=== PATIENT | male | born 1975 | race Caucasian/White ===

== ENCOUNTER 2017-07-23 09:58 | Emergency (ER) | payer OTHER ==
[~2017-07-23] VITALS: Ht 177.8 cm; Wt 90.7 kg
[~2017-07-23 09:58] MED LIST: ABILIFY; ARIP10 PO; BENZ.5; BENZ2 PO; COGENTIN; DIPH50 PO; DIVA250EC PO; DIVA500EC; HALDOL; HALO2 PO; HALO5; HALO5 PO; OMEP20ER PO; RISP1 PO; RISP2; RISP2 PO; RISP3; RISP4; TRAZ100; TRAZ50; [UNRECOGNIZED DRUG - OTHER]
[2017-07-23 10:29] LABS: Source, Urine Voided
[2017-07-23 10:41] LABS: Bilirubin, Urine Neg (Neg); Blood, Urine Neg (Neg); Glucose Qualitative, Urine Neg (Neg); Ketones, Urine Neg (Neg); Leukocyte Esterase, Urine Neg (Neg); Nitrite, Urine Neg (Neg); Protein, Urine Neg (Neg); Urobilinogen, Urine NORM (Normal)
[2017-07-23 10:55] LABS: BASOPHILS ABSOLUTE AUTO 0.04 K/mm3 (0.00-0.23); BASOPHILS PERCENT AUTO 0 % (0-2); EOSINOPHILS ABSOLUTE AUTO 0.11 K/mm3 (0.00-0.68); EOSINOPHILS PERCENT AUTO 1 % (0-6); Hematocrit 45.3 % (37.0-53.0); Hemoglobin 15.8 g/dL (13.5-17.5); IMMATURE GRAN ABSOLUTE AUTO 0.04 K/mm3 (0.00-0.10); IMMATURE GRAN PERCENT AUTO 0 % (0-1); LYMPHOCYTES ABSOLUTE AUTO 2.02 K/mm3 (0.84-5.20); LYMPHOCYTES PERCENT AUTO 20 % (21-46); MONOCYTES PERCENT AUTO 7 % (4-13); Mean Corpuscular HGB 30.6 pg (26.0-34.0); Mean Corpuscular HGB Conc 34.9 g/dL (31.5-36.5); Mean Corpuscular Volume 88 fL (80-100); Mean Platelet Volume 9.6 fL (9.1-12.4); NEUTROPHILS ABSOLUTE AUTO 7.07 K/mm3 (1.96-9.15); NEUTROPHILS PERCENT AUTO 71 % (41-73); Platelet Count 222 K/mm3 (150-400); RDW Coefficient Variation 12.2 % (11.7-14.2); RDW Standard Deviation 39.6 fL (35.1-46.3); Red Blood Cell Count 5.16 M/mm3 (4.30-5.90); White Blood Cell Count 9.98 K/mm3 (4.00-11.30)
[2017-07-23 10:59] LABS: Appearance, Urine Clear (Clear); Color, Urine Yellow (P-Yellow)
[2017-07-23 11:02] LABS: U Amphetamine Screen Not Detected; U Barbituate Screen Not Detected; U Benzodiazapine Screen Not Detected; U Buprenorphine Screen Not Detected; U Cannabinoids Screen DETECTED; U Cocaine Screen Not Detected; U Methadone Screen Not Detected; U Methamphetamine Screen Not Detected; U Opiates Screen Not Detected; U Oxycodone Screen Not Detected; U Phencyclidine Screen Not Detected; U Propoxyphene Screen Not Detected
[2017-07-23] MEDS ORDERED: HALO5 PO (11:06)
[2017-07-23 11:17] LABS: Alanine Aminotransfer (ALT/SGP 29 U/L (12-78); Albumin, Blood 3.5 g/dL (3.4-5.0); Alk Phos 105 U/L (50-136); Anion Gap 7 mmol/L (6-16); Aspartate Aminotrans (AST/SGOT 21 U/L (12-37); Bilirubin, Total 0.5 mg/dL (0.1-1.0); Blood Urea Nitrogen 8 mg/dL (8-24); Bun/Creatinine Ratio 10.1 (12.0-20.0); CO2, Blood 25 mmol/L (21-32); Calcium, Blood 8.7 mg/dL (8.5-10.1); Chloride, Blood 108 mmol/L (98-108); Creatinine, Blood 0.79 mg/dL (0.60-1.20); Ethanol (Alcohol), Blood, Med 12 mg/dL; Globulin, Blood 3.6 g/dL (2.2-4.0); Glomerular Filtration Rate >60 (60-); Glucose, Blood 129 mg/dL (70-99); Potassium, Blood 3.7 mmol/L (3.5-5.5); Salicylate 4.5 mg/dL (2.8-20.0); Sodium, Blood 140 mmol/L (136-145); Total Protein, Blood 7.1 g/dL (6.4-8.2)
[2017-07-23 11:21] LABS: Thyroid Stimulating Hormone 0.668 uIU/mL (0.360-4.800)
[2017-07-23 11:23] LABS: Acetaminophen, Random <2.0 ug/mL (10.0-30.0)
== END 2017-07-23 12:54 | disposition home or self-care (01) ==
LOC: ER 09:58
PROVIDERS: Emergency Medicine
DX: F20.9 Schizophrenia, unspecified (principal); Z88.8 Allergy status to other drugs, medicaments and biological substances
CPT/HCPCS: 36415; 80053; 81003; 84443; 85025; 99284; G0480; Q3014

== ENCOUNTER 2018-08-28 20:03 | Observation (INO) | payer OTHER ==
[~2018-08-28] VITALS: Ht 177.8 cm; Wt 94.8 kg
[~2018-08-28 20:03] MED LIST changes: +Benztropine Mesy1 MG PO; +CHOL10002 PO; +TEMA15 PO
[2018-08-28] MEDS ORDERED: OLAN20 MM (20:31)
[2018-08-28] MEDS ORDERED: IBUP600 PO (20:32)
[2018-08-28] MEDS ORDERED: Amaryl1 MG PO (20:32)
[2018-08-28 20:51] LABS: Source, Urine Voided
[2018-08-28 20:53] LABS: Bilirubin, Urine Neg (Neg); Blood, Urine Neg (Neg); Glucose Qualitative, Urine Neg (Neg); Ketones, Urine Neg (Neg); Leukocyte Esterase, Urine Neg (Neg); Nitrite, Urine Neg (Neg); Protein, Urine Neg (Neg); Urobilinogen, Urine NORM (Normal)
[2018-08-28 20:58] LABS: Appearance, Urine Clear (Clear); Color, Urine Yellow (P-Yellow)
[2018-08-28] MEDS ORDERED: OLAN5 PO (21:02)
[2018-08-28] MEDS ORDERED: METF500C PO (21:03)
[2018-08-28 21:04] LABS: U Amphetamine Screen Not Detected; U Barbituate Screen Not Detected; U Benzodiazapine Screen Not Detected; U Buprenorphine Screen Not Detected; U Cannabinoids Screen DETECTED; U Cocaine Screen Not Detected; U Methadone Screen Not Detected; U Methamphetamine Screen Not Detected; U Opiates Screen Not Detected; U Oxycodone Screen Not Detected; U Phencyclidine Screen Not Detected; U Propoxyphene Screen Not Detected
[2018-08-28 21:06] LABS: BASOPHILS ABSOLUTE AUTO 0.04 K/mm3 (0.00-0.23); BASOPHILS PERCENT AUTO 0 % (0-2); EOSINOPHILS ABSOLUTE AUTO 0.29 K/mm3 (0.00-0.68); EOSINOPHILS PERCENT AUTO 2 % (0-6); Hematocrit 47.2 % (37.0-53.0); Hemoglobin 16.1 g/dL (13.5-17.5); IMMATURE GRAN ABSOLUTE AUTO 0.05 K/mm3 (0.00-0.10); IMMATURE GRAN PERCENT AUTO 0 % (0-1); LYMPHOCYTES ABSOLUTE AUTO 3.29 K/mm3 (0.84-5.20); LYMPHOCYTES PERCENT AUTO 24 % (21-46); MONOCYTES ABSOLUTE AUTO 0.82 K/mm3 (0.16-1.47); MONOCYTES PERCENT AUTO 6 % (4-13); Mean Corpuscular HGB 31.1 pg (26.0-34.0); Mean Corpuscular HGB Conc 34.1 g/dL (31.5-36.5); Mean Corpuscular Volume 91 fL (80-100); Mean Platelet Volume 9.7 fL (9.1-12.4); NEUTROPHILS ABSOLUTE AUTO 9.22 K/mm3 (1.96-9.15); NEUTROPHILS PERCENT AUTO 67 % (41-73); Platelet Count 204 K/mm3 (150-400); RDW Coefficient Variation 12.8 % (11.7-14.2); RDW Standard Deviation 43.1 fL (35.1-46.3); Red Blood Cell Count 5.18 M/mm3 (4.30-5.90); White Blood Cell Count 13.71 K/mm3 (4.00-11.30)
[2018-08-28 21:29] LABS: Alanine Aminotransfer (ALT/SGP 21 U/L (12-78); Albumin, Blood 3.6 g/dL (3.4-5.0); Albumin/Globulin Ratio 1.1 (0.8-1.8); Alk Phos 69 U/L (50-136); Anion Gap 5 mmol/L (6-16); Aspartate Aminotrans (AST/SGOT 17 U/L (12-37); Bilirubin, Total 0.5 mg/dL (0.1-1.0); Blood Urea Nitrogen 9 mg/dL (8-24); Bun/Creatinine Ratio 11.4 (12.0-20.0); CO2, Blood 25 mmol/L (21-32); Calcium, Blood 8.7 mg/dL (8.5-10.1); Chloride, Blood 109 mmol/L (98-108); Creatinine, Blood 0.79 mg/dL (0.60-1.20); Ethanol (Alcohol), Blood, Med <3 mg/dL; Globulin, Blood 3.4 g/dL (2.2-4.0); Glomerular Filtration Rate >60 (60-); Glucose, Blood 79 mg/dL (70-99); Potassium, Blood 3.8 mmol/L (3.5-5.5); Salicylate 5.2 mg/dL (2.8-20.0); Sodium, Blood 139 mmol/L (136-145)
[2018-08-28 21:37] LABS: Acetaminophen, Random <2.0 ug/mL (10.0-30.0)
== END 2018-08-28 23:35 | disposition home or self-care (01) ==
LOC: ER 20:03 → EOR 20:04
PROVIDERS: ADMIT Emergency Medicine
DX: F20.0 Paranoid schizophrenia (principal); F12.929 Cannabis use, unspecified with intoxication, unspecified; Z91.018 Allergy to other foods; Z88.8 Allergy status to other drugs, medicaments and biological substances; Z79.899 Other long term (current) drug therapy
CPT/HCPCS: 36415; 80053; 81003; 84443; 85025; 99285; G0378; G0480; Q3014

== ENCOUNTER 2018-09-05 19:09 | Emergency (ER) | payer OTHER ==
[~2018-09-05] VITALS: Ht 177.8 cm; Wt 94.8 kg
[~2018-09-05 19:09] MED LIST changes: +METF500C PO; +OLAN20 PO; +OLAN5 PO
[2018-09-05 19:39] LABS: Source, Urine Clean Catch
[2018-09-05 19:43] LABS: BASOPHILS ABSOLUTE AUTO 0.03 K/mm3 (0.00-0.23); BASOPHILS PERCENT AUTO 0 % (0-2); EOSINOPHILS ABSOLUTE AUTO 0.13 K/mm3 (0.00-0.68); EOSINOPHILS PERCENT AUTO 1 % (0-6); Hemoglobin 17.6 g/dL (13.5-17.5); IMMATURE GRAN ABSOLUTE AUTO 0.04 K/mm3 (0.00-0.10); IMMATURE GRAN PERCENT AUTO 0 % (0-1); LYMPHOCYTES ABSOLUTE AUTO 2.91 K/mm3 (0.84-5.20); LYMPHOCYTES PERCENT AUTO 24 % (21-46); MONOCYTES ABSOLUTE AUTO 0.77 K/mm3 (0.16-1.47); MONOCYTES PERCENT AUTO 6 % (4-13); Mean Corpuscular HGB Conc 34.5 g/dL (31.5-36.5); Mean Corpuscular Volume 90 fL (80-100); Mean Platelet Volume 9.6 fL (9.1-12.4); NEUTROPHILS ABSOLUTE AUTO 8.14 K/mm3 (1.96-9.15); NEUTROPHILS PERCENT AUTO 68 % (41-73); Platelet Count 229 K/mm3 (150-400); RDW Coefficient Variation 12.6 % (11.7-14.2); RDW Standard Deviation 41.3 fL (35.1-46.3); Red Blood Cell Count 5.68 M/mm3 (4.30-5.90); White Blood Cell Count 12.02 K/mm3 (4.00-11.30)
[2018-09-05 19:43] LABS: Bilirubin, Urine Neg (Neg); Blood, Urine Neg (Neg); Glucose Qualitative, Urine Neg (Neg); Ketones, Urine Neg (Neg); Leukocyte Esterase, Urine Neg (Neg); Nitrite, Urine Neg (Neg); Protein, Urine Neg (Neg); Specific Gravity, Urine 1.015 (1.003-1.022); Urobilinogen, Urine NORM (Normal)
[2018-09-05 19:48] LABS: Appearance, Urine Clear (Clear); Color, Urine Yellow (P-Yellow)
[2018-09-05 19:59] LABS: U Amphetamine Screen Not Detected; U Barbituate Screen Not Detected; U Benzodiazapine Screen Not Detected; U Buprenorphine Screen Not Detected; U Cannabinoids Screen DETECTED; U Cocaine Screen Not Detected; U Methadone Screen Not Detected; U Methamphetamine Screen Not Detected; U Opiates Screen Not Detected; U Oxycodone Screen Not Detected; U Phencyclidine Screen Not Detected; U Propoxyphene Screen Not Detected
[2018-09-05 20:14] LABS: Ethanol (Alcohol), Blood, Med <3 mg/dL; Salicylate 7.2 mg/dL (2.8-20.0); Thyroxine (T4) 9.6 ug/dL (4.5-12.1)
[2018-09-05 20:23] LABS: Alanine Aminotransfer (ALT/SGP 27 U/L (12-78); Albumin/Globulin Ratio 1.1 (0.8-1.8); Alk Phos 99 U/L (50-136); Anion Gap 8 mmol/L (6-16); Aspartate Aminotrans (AST/SGOT 13 U/L (12-37); Bilirubin, Total 0.7 mg/dL (0.1-1.0); Blood Urea Nitrogen 10 mg/dL (8-24); Bun/Creatinine Ratio 12.2 (12.0-20.0); CO2, Blood 24 mmol/L (21-32); Calcium, Blood 9.1 mg/dL (8.5-10.1); Chloride, Blood 103 mmol/L (98-108); Creatinine, Blood 0.82 mg/dL (0.60-1.20); Globulin, Blood 3.8 g/dL (2.2-4.0); Glomerular Filtration Rate >60 (60-); Glucose, Blood 186 mg/dL (70-99); Potassium, Blood 3.4 mmol/L (3.5-5.5); Sodium, Blood 135 mmol/L (136-145); Total Protein, Blood 7.8 g/dL (6.4-8.2)
== END 2018-09-05 23:52 | disposition home or self-care (01) ==
LOC: ER 19:09
PROVIDERS: Emergency Medicine
DX: F20.9 Schizophrenia, unspecified (principal); R45.1 Restlessness and agitation; F41.9 Anxiety disorder, unspecified; Z88.8 Allergy status to other drugs, medicaments and biological substances; Z79.899 Other long term (current) drug therapy; Z79.84 Long term (current) use of oral hypoglycemic drugs; F17.210 Nicotine dependence, cigarettes, uncomplicated
CPT/HCPCS: 36415; 80053; 81003; 84436; 84443; 85025; 99283; G0480

== ENCOUNTER 2018-10-07 17:10 | Emergency (ER) | payer OTHER ==
[~2018-10-07] VITALS: Ht 177.8 cm; Wt 86.2 kg
[2018-10-07] MEDS ORDERED: OLAN5 PO (17:56)
[2018-10-07] MEDS ORDERED: IBUP600 PO (18:14)
[2018-10-07] MEDS ORDERED: Amaryl1 MG PO (18:15)
[2018-10-07] MEDS ORDERED: ALBU90OI61 INH (18:19)
== END 2018-10-07 21:05 | disposition home or self-care (01) ==
LOC: ER 17:10
DX: F32.9 Major depressive disorder, single episode, unspecified (principal); Z88.8 Allergy status to other drugs, medicaments and biological substances; Z79.84 Long term (current) use of oral hypoglycemic drugs; Z79.899 Other long term (current) drug therapy; F20.9 Schizophrenia, unspecified; F17.210 Nicotine dependence, cigarettes, uncomplicated
CPT/HCPCS: 99284; Q3014

== ENCOUNTER 2018-12-18 09:46 | Emergency (ER) | payer OTHER ==
[~2018-12-18] VITALS: Ht 177.8 cm; Wt 86.2 kg
[~2018-12-18 09:46] MED LIST changes: +ALBU90OI61 INH; +Amaryl1 MG PO; +IBUP600 PO
[2018-12-18] MEDS ORDERED: Bupropion HCl150 M2 PO (10:05)
[2018-12-18] MEDS ORDERED: OLANZAPINE5 MG PO (10:05)
[2018-12-18] MEDS ORDERED: METFORMIN HCL500 MG PO (10:05)
== END 2018-12-18 11:45 | disposition home or self-care (01) ==
LOC: ER 09:46
DX: F20.0 Paranoid schizophrenia (principal); F17.210 Nicotine dependence, cigarettes, uncomplicated; Z88.8 Allergy status to other drugs, medicaments and biological substances; Z79.899 Other long term (current) drug therapy; Z79.84 Long term (current) use of oral hypoglycemic drugs
CPT/HCPCS: 99283

== ENCOUNTER 2019-01-12 11:54 | Emergency (ER) | payer OTHER ==
[~2019-01-12] VITALS: Ht 177.8 cm; Wt 90.7 kg
[~2019-01-12 11:54] MED LIST changes: +Bupropion HCl150 M2 PO; +METFORMIN HCL500 MG PO; +OLANZAPINE5 MG PO
[2019-01-12 12:30] LABS: BASOPHILS ABSOLUTE AUTO 0.04 K/mm3 (0.00-0.23); BASOPHILS PERCENT AUTO 0 % (0-2); EOSINOPHILS ABSOLUTE AUTO 0.08 K/mm3 (0.00-0.68); EOSINOPHILS PERCENT AUTO 1 % (0-6); Hematocrit 47.1 % (37.0-53.0); Hemoglobin 16.1 g/dL (13.5-17.5); IMMATURE GRAN ABSOLUTE AUTO 0.06 K/mm3 (0.00-0.10); IMMATURE GRAN PERCENT AUTO 0 % (0-1); LYMPHOCYTES ABSOLUTE AUTO 2.56 K/mm3 (0.84-5.20); LYMPHOCYTES PERCENT AUTO 18 % (21-46); MONOCYTES ABSOLUTE AUTO 0.79 K/mm3 (0.16-1.47); MONOCYTES PERCENT AUTO 6 % (4-13); Mean Corpuscular HGB 31.3 pg (26.0-34.0); Mean Corpuscular HGB Conc 34.2 g/dL (31.5-36.5); Mean Corpuscular Volume 92 fL (80-100); Mean Platelet Volume 9.4 fL (9.1-12.4); NEUTROPHILS ABSOLUTE AUTO 10.44 K/mm3 (1.96-9.15); NEUTROPHILS PERCENT AUTO 75 % (41-73); Platelet Count 211 K/mm3 (150-400); RDW Coefficient Variation 12.3 % (11.7-14.2); RDW Standard Deviation 42.1 fL (35.1-46.3); Red Blood Cell Count 5.14 M/mm3 (4.30-5.90); White Blood Cell Count 13.97 K/mm3 (4.00-11.30)
[2019-01-12 12:34] LABS: Source, Urine Clean Catch
[2019-01-12 12:39] LABS: Bilirubin, Urine Neg (Neg); Blood, Urine Neg (Neg); Glucose Qualitative, Urine Neg (Neg); Ketones, Urine Neg (Neg); Leukocyte Esterase, Urine Neg (Neg); Nitrite, Urine Neg (Neg); Protein, Urine Neg (Neg); Urobilinogen, Urine NORM (Normal)
[2019-01-12 12:40] LABS: Appearance, Urine Clear (Clear); Color, Urine Yellow (P-Yellow)
[2019-01-12 12:50] LABS: U Amphetamine Screen Not Detected; U Barbituate Screen Not Detected; U Benzodiazapine Screen Not Detected; U Buprenorphine Screen Not Detected; U Cannabinoids Screen DETECTED; U Cocaine Screen Not Detected; U Methadone Screen Not Detected; U Methamphetamine Screen Not Detected; U Opiates Screen Not Detected; U Oxycodone Screen Not Detected; U Phencyclidine Screen Not Detected; U Propoxyphene Screen Not Detected
[2019-01-12 12:55] LABS: Alanine Aminotransfer (ALT/SGP 28 U/L (12-78); Albumin, Blood 3.8 g/dL (3.4-5.0); Albumin/Globulin Ratio 1.1 (0.8-1.8); Alk Phos 82 U/L (50-136); Anion Gap 10 mmol/L (6-16); Aspartate Aminotrans (AST/SGOT 29 U/L (12-37); Bilirubin, Total 0.4 mg/dL (0.1-1.0); Blood Urea Nitrogen 9 mg/dL (8-24); Bun/Creatinine Ratio 10.2 (12.0-20.0); CO2, Blood 22 mmol/L (21-32); Calcium, Blood 9.1 mg/dL (8.5-10.1); Chloride, Blood 108 mmol/L (98-108); Creatinine, Blood 0.88 mg/dL (0.60-1.20); Ethanol (Alcohol), Blood, Med 48 mg/dL; Globulin, Blood 3.6 g/dL (2.2-4.0); Glomerular Filtration Rate >60 (60-); Glucose, Blood 161 mg/dL (70-99); Potassium, Blood 3.7 mmol/L (3.5-5.5); Salicylate 4.7 mg/dL (2.8-20.0); Sodium, Blood 140 mmol/L (136-145); Thyroxine (T4) 8.5 ug/dL (4.5-12.1); Total Protein, Blood 7.4 g/dL (6.4-8.2)
[2019-01-12 12:59] LABS: Thyroid Stimulating Hormone 0.841 uIU/mL (0.360-4.800)
[2019-01-12 13:01] LABS: Acetaminophen, Random <2.0 ug/mL (10.0-30.0)
[2019-01-12] MEDS ORDERED: D3-20002000 UNIT PO (13:34)
[2019-01-12] MEDS ORDERED: Vistaril25 MG PO (13:35)
== END 2019-01-12 15:35 | disposition home or self-care (01) ==
LOC: ER 11:54
PROVIDERS: Emergency Medicine
DX: F41.9 Anxiety disorder, unspecified (principal); F20.9 Schizophrenia, unspecified; E11.9 Type 2 diabetes mellitus without complications; Z88.8 Allergy status to other drugs, medicaments and biological substances; Z79.899 Other long term (current) drug therapy; Z79.84 Long term (current) use of oral hypoglycemic drugs
CPT/HCPCS: 36415; 80053; 81003; 84436; 84443; 85025; 99283; G0480

== ENCOUNTER → 2019-02-05 | Outpatient (CLI) | payer OTHER ==
[~2019-02-05] MED LIST changes: +CEPH500 PO; +D3-20002000 UNIT PO; +Ventolin/Prove6.7 GM INH; +Vistaril25 MG PO
[2019-02-05 17:31] LABS: U Amphetamine Screen Not Detected; U Barbituate Screen Not Detected; U Benzodiazapine Screen Not Detected; U Buprenorphine Screen Not Detected; U Cannabinoids Screen DETECTED; U Cocaine Screen Not Detected; U Methadone Screen Not Detected; U Methamphetamine Screen Not Detected; U Opiates Screen Not Detected; U Phencyclidine Screen Not Detected
[2019-02-05 17:32] LABS: U Oxycodone Screen Not Detected; U Propoxyphene Screen Not Detected
== END | disposition home or self-care (01) ==
LOC: LAB 08:20 → LAB SHORT 08:20
PROVIDERS: Registered Nurse Psychiatric/Mental Health
DX: Z51.81 Encounter for therapeutic drug level monitoring (principal); Z79.899 Other long term (current) drug therapy

== ENCOUNTER 2019-02-11 10:20 | Emergency (ER) | payer OTHER ==
[~2019-02-11] VITALS: Ht 177.8 cm; Wt 86.2 kg
[2019-02-11] MEDS ORDERED: Clonazepam0.5 MG PO (13:23)
== END 2019-02-11 13:25 | disposition home or self-care (01) ==
LOC: ER 10:20
DX: F20.9 Schizophrenia, unspecified (principal); F41.9 Anxiety disorder, unspecified; E11.9 Type 2 diabetes mellitus without complications; F17.210 Nicotine dependence, cigarettes, uncomplicated; Z91.018 Allergy to other foods; Z88.8 Allergy status to other drugs, medicaments and biological substances; Z79.899 Other long term (current) drug therapy; Z79.84 Long term (current) use of oral hypoglycemic drugs
CPT/HCPCS: 99283

== ENCOUNTER → 2019-03-07 | Outpatient (CLI) | payer OTHER ==
[~2019-03-07] MED LIST changes: +Clonazepam0.5 MG PO
== END ==
LOC: LAB 10:32 → LAB SHORT 10:32
DX: E11.9 Type 2 diabetes mellitus without complications (principal)
CPT/HCPCS: 82043

== ENCOUNTER 2019-03-31 07:04 | Emergency (ER) | payer OTHER ==
[~2019-03-31] VITALS: Ht 177.8 cm; Wt 99.8 kg
== END 2019-03-31 08:23 | disposition home or self-care (01) ==
LOC: ER 07:04
DX: F20.0 Paranoid schizophrenia (principal); E11.9 Type 2 diabetes mellitus without complications; F17.210 Nicotine dependence, cigarettes, uncomplicated; Z88.8 Allergy status to other drugs, medicaments and biological substances
CPT/HCPCS: 99283

== ENCOUNTER → 2019-04-25 | Outpatient (CLI) | payer OTHER ==
[2019-04-25 15:15] LABS: Campylobacter Sp Not Detected (NOT DETECT); Plesiomonas Shigelloides Not Detected (NOT DETECT); Salmonella Sp Not Detected (NOT DETECT)
[2019-04-25 15:16] LABS: Adenovirus F 40/41 Not Detected (NOT DETECT); Astrovirus Not Detected (NOT DETECT); Cryptosporidium Not Detected (NOT DETECT); Cyclospora Cayetanensis Not Detected (NOT DETECT); E. Coli O157 Not Detected (NOT DETECT); Entamoeba Histolytica Not Detected (NOT DETECT); Enteroaggregative E. coli-EAEC Not Detected (NOT DETECT); Enteropathogenic E. coli-EPEC Not Detected (NOT DETECT); Enterotoxigenic E. coli-ETEC Not Detected (NOT DETECT); Giardia Lamblia Not Detected (NOT DETECT); Norovirus GI/GII Not Detected (NOT DETECT); Rotavirus A Not Detected (NOT DETECT); Sapovirus Not Detected (NOT DETECT); Shiga Toxin-prod E. coli-STEC Not Detected (NOT DETECT); Shigella/Enteroin E. coli-EIEC Not Detected (NOT DETECT); Vibrio Cholerae Not Detected (NOT DETECT); Vibrio Sp Not Detected (NOT DETECT); Yersinia Enterocolitica Not Detected (NOT DETECT)
== END | disposition home or self-care (01) ==
LOC: LAB SHORT 09:26 → LAB 09:26
PROVIDERS: Nurse Practitioner Family
DX: R10.30 Lower abdominal pain, unspecified (principal); R19.7 Diarrhea, unspecified
CPT/HCPCS: 0097U

== ENCOUNTER → 2019-05-07 | Outpatient (CLI) | payer OTHER ==
[2019-05-07 18:57] LABS: U Amphetamine Screen Not Detected; U Barbituate Screen Not Detected; U Benzodiazapine Screen Not Detected; U Buprenorphine Screen Not Detected; U Cannabinoids Screen DETECTED; U Cocaine Screen Not Detected; U Methadone Screen Not Detected; U Methamphetamine Screen Not Detected; U Opiates Screen Not Detected; U Oxycodone Screen Not Detected; U Propoxyphene Screen Not Detected
== END | disposition home or self-care (01) ==
LOC: LAB SHORT 17:18 → LAB 17:18
PROVIDERS: Registered Nurse Psychiatric/Mental Health
DX: Z51.81 Encounter for therapeutic drug level monitoring (principal); Z79.899 Other long term (current) drug therapy

== ENCOUNTER 2019-06-24 12:45 | Emergency (ER) | payer OTHER ==
[~2019-06-24] VITALS: Ht 175.3 cm; Wt 104.3 kg
== END 2019-06-24 13:26 | disposition home or self-care (01) ==
LOC: ER 12:45
DX: F41.9 Anxiety disorder, unspecified (principal); F20.9 Schizophrenia, unspecified; E11.9 Type 2 diabetes mellitus without complications; F17.210 Nicotine dependence, cigarettes, uncomplicated; Z91.048 Other nonmedicinal substance allergy status; Z79.899 Other long term (current) drug therapy; Z79.84 Long term (current) use of oral hypoglycemic drugs
CPT/HCPCS: 99283

== ENCOUNTER 2019-06-28 14:35 | Emergency (ER) | payer OTHER ==
[~2019-06-28] VITALS: Ht 177.8 cm; Wt 103.9 kg
== END 2019-06-28 16:11 | disposition home or self-care (01) ==
LOC: ER 14:35
DX: F41.9 Anxiety disorder, unspecified (principal); F20.9 Schizophrenia, unspecified; F17.210 Nicotine dependence, cigarettes, uncomplicated; Z91.018 Allergy to other foods; Z79.899 Other long term (current) drug therapy; Z79.84 Long term (current) use of oral hypoglycemic drugs
CPT/HCPCS: 99283

== ENCOUNTER 2019-08-23 14:31 | Emergency (ER) | payer OTHER ==
[~2019-08-23] VITALS: Ht 177.8 cm; Wt 99.8 kg
== END 2019-08-23 16:20 | disposition home or self-care (01) ==
LOC: ER 14:31
DX: F41.9 Anxiety disorder, unspecified (principal); F20.9 Schizophrenia, unspecified; F17.210 Nicotine dependence, cigarettes, uncomplicated; Z88.8 Allergy status to other drugs, medicaments and biological substances; Z79.84 Long term (current) use of oral hypoglycemic drugs; Z79.899 Other long term (current) drug therapy
CPT/HCPCS: 99283

== ENCOUNTER 2019-09-12 17:20 | Emergency (ER) | payer OTHER ==
[~2019-09-12] VITALS: Ht 172.7 cm; Wt 86.2 kg
== END 2019-09-12 20:15 | disposition left against medical advice (07) ==
LOC: ER 17:20
DX: Z53.21 Procedure and treatment not carried out due to patient leaving prior to being seen by health care provider (principal)
CPT/HCPCS: 99282

== ENCOUNTER 2019-09-22 01:07 | Emergency (ER) | payer OTHER ==
[~2019-09-22] VITALS: Ht 177.8 cm; Wt 95.2 kg
[~2019-09-22 01:07] MED LIST changes: +Glimepiride1 MG; +METFORMIN HCL500 M3; +Naltrexone HCl50 MG
[2019-09-22] MEDS ORDERED: Klonopin0.5 MG PO (01:46)
[2019-09-22] MEDS ORDERED: BUPROPION HCL200 M1 PO (01:47)
== END 2019-09-22 02:47 | disposition home or self-care (01) ==
LOC: ER 01:07
DX: F41.9 Anxiety disorder, unspecified (principal); G47.00 Insomnia, unspecified; Z88.8 Allergy status to other drugs, medicaments and biological substances; Z79.899 Other long term (current) drug therapy; Z79.84 Long term (current) use of oral hypoglycemic drugs; F20.9 Schizophrenia, unspecified; E11.9 Type 2 diabetes mellitus without complications; F17.200 Nicotine dependence, unspecified, uncomplicated
CPT/HCPCS: 99283; Q0163

== ENCOUNTER 2019-09-29 23:49 | Emergency (ER) | payer OTHER ==
[~2019-09-29] VITALS: Ht 172.7 cm; Wt 81.7 kg
[~2019-09-29 23:49] MED LIST changes: +BUPROPION HCL200 M1 PO; +Klonopin0.5 MG PO
[2019-09-30] MEDS ORDERED: OLANZAPINE20 MG PO (00:12)
[2019-09-30] MEDS ORDERED: OLAN5 PO (00:12)
[2019-09-30] MEDS ORDERED: VITAMIN D350 MC2 PO (00:13)
== END 2019-09-30 01:07 | disposition home or self-care (01) ==
LOC: ER 23:49
DX: F51.04 Psychophysiologic insomnia (principal); F23 Brief psychotic disorder; Z88.8 Allergy status to other drugs, medicaments and biological substances; Z79.899 Other long term (current) drug therapy; E11.9 Type 2 diabetes mellitus without complications; F17.200 Nicotine dependence, unspecified, uncomplicated
CPT/HCPCS: 93005; 93010; 96372; 99284-25; J1200

== ENCOUNTER 2019-11-05 22:58 | Emergency (ER) | payer OTHER ==
[~2019-11-05] VITALS: Ht 177.8 cm; Wt 104.3 kg
[~2019-11-05 22:58] MED LIST changes: +OLANZAPINE20 MG PO; +VITAMIN D350 MC2 PO
[2019-11-06] MEDS ORDERED: Lithium Carbon300 MG PO (01:06)
[2019-11-06 01:26] LABS: BASOPHILS ABSOLUTE AUTO 0.06 K/mm3 (0.00-0.23); BASOPHILS PERCENT AUTO 1 % (0-2); EOSINOPHILS ABSOLUTE AUTO 0.31 K/mm3 (0.00-0.68); EOSINOPHILS PERCENT AUTO 3 % (0-6); Hematocrit 48.5 % (37.0-53.0); Hemoglobin 16.7 g/dL (13.5-17.5); IMMATURE GRAN ABSOLUTE AUTO 0.08 K/mm3 (0.00-0.10); IMMATURE GRAN PERCENT AUTO 1 % (0-1); LYMPHOCYTES ABSOLUTE AUTO 3.25 K/mm3 (0.84-5.20); LYMPHOCYTES PERCENT AUTO 29 % (21-46); MONOCYTES ABSOLUTE AUTO 0.79 K/mm3 (0.16-1.47); MONOCYTES PERCENT AUTO 7 % (4-13); Mean Corpuscular HGB 31.1 pg (26.0-34.0); Mean Corpuscular HGB Conc 34.4 g/dL (31.5-36.5); Mean Corpuscular Volume 90 fL (80-100); Mean Platelet Volume 10.1 fL (9.1-12.4); NEUTROPHILS PERCENT AUTO 61 % (41-73); Platelet Count 212 K/mm3 (150-400); RDW Coefficient Variation 12.1 % (11.7-14.2); RDW Standard Deviation 39.8 fL (35.1-46.3); Red Blood Cell Count 5.37 M/mm3 (4.30-5.90); White Blood Cell Count 11.39 K/mm3 (4.00-11.30)
[2019-11-06 01:42] LABS: Alanine Aminotransfer (ALT/SGP 62 U/L (12-78); Albumin, Blood 3.5 g/dL (3.4-5.0); Albumin/Globulin Ratio 0.9 (0.8-1.8); Alk Phos 97 U/L (50-136); Anion Gap 8 mmol/L (6-16); Aspartate Aminotrans (AST/SGOT 29 U/L (12-37); Bilirubin, Total 0.4 mg/dL (0.1-1.0); Blood Urea Nitrogen 17 mg/dL (8-24); Bun/Creatinine Ratio 22.3 (12.0-20.0); CO2, Blood 24 mmol/L (21-32); Calcium, Blood 8.9 mg/dL (8.5-10.1); Chloride, Blood 106 mmol/L (98-108); Creatinine, Blood 0.76 mg/dL (0.60-1.20); Ethanol (Alcohol), Blood, Med <3 mg/dL; Glomerular Filtration Rate >60 (60-); Glucose, Blood 182 mg/dL (70-99); Potassium, Blood 3.7 mmol/L (3.5-5.5); Salicylate 5.1 mg/dL (2.8-20.0); Sodium, Blood 138 mmol/L (136-145); Total Protein, Blood 7.5 g/dL (6.4-8.2)
[2019-11-06 01:45] LABS: Acetaminophen, Random <2.0 ug/mL (10.0-30.0)
[2019-11-06 04:09] LABS: Lithium <0.20 mmol/L (0.60-1.20)
== END 2019-11-06 04:13 | disposition home or self-care (01) ==
LOC: ER 22:58
PROVIDERS: Emergency Medicine
DX: R45.851 Suicidal ideations (principal); Z88.8 Allergy status to other drugs, medicaments and biological substances; Z79.899 Other long term (current) drug therapy; Z79.84 Long term (current) use of oral hypoglycemic drugs; F20.9 Schizophrenia, unspecified; E11.9 Type 2 diabetes mellitus without complications; F17.210 Nicotine dependence, cigarettes, uncomplicated
CPT/HCPCS: 80053; 80178; 85025; 94640; 99284; G0480

== ENCOUNTER 2019-11-30 20:08 | Emergency (ER) | payer OTHER ==
[~2019-11-30] VITALS: Ht 177.8 cm; Wt 104.3 kg
[~2019-11-30 20:08] MED LIST changes: +Lithium Carbon300 MG PO
== END 2019-11-30 21:29 | disposition home or self-care (01) ==
LOC: ER 20:08
DX: F41.9 Anxiety disorder, unspecified (principal); F20.9 Schizophrenia, unspecified; F29 Unspecified psychosis not due to a substance or known physiological condition; Z88.8 Allergy status to other drugs, medicaments and biological substances; Z79.84 Long term (current) use of oral hypoglycemic drugs; Z79.899 Other long term (current) drug therapy; E11.9 Type 2 diabetes mellitus without complications; F17.210 Nicotine dependence, cigarettes, uncomplicated
CPT/HCPCS: 99284

== ENCOUNTER 2019-12-16 15:24 | Emergency (ER) | payer OTHER ==
[~2019-12-16] VITALS: Ht 177.8 cm; Wt 99.8 kg
== END 2019-12-16 18:00 | disposition home or self-care (01) ==
LOC: ER 15:24
DX: F32.9 Major depressive disorder, single episode, unspecified (principal); R45.1 Restlessness and agitation; E11.9 Type 2 diabetes mellitus without complications; F20.9 Schizophrenia, unspecified; F17.210 Nicotine dependence, cigarettes, uncomplicated; Z79.899 Other long term (current) drug therapy; Z88.4 Allergy status to anesthetic agent; Z79.84 Long term (current) use of oral hypoglycemic drugs; Z91.048 Other nonmedicinal substance allergy status; Z88.8 Allergy status to other drugs, medicaments and biological substances
CPT/HCPCS: 99284

== ENCOUNTER → 2019-12-16 | Outpatient (CLI) | payer OTHER | END | disposition home or self-care (01) | LOC: LAB 12:45 → LAB SHORT 12:45 | DX: H92.02 Otalgia, left ear (principal) | CPT/HCPCS: 87070; 87205 ==

== ENCOUNTER → 2020-01-06 | Outpatient (CLI) | payer OTHER | END | disposition home or self-care (01) | LOC: LAB 20:39 → LAB SHORT 20:39 | DX: L02.91 Cutaneous abscess, unspecified (principal) | CPT/HCPCS: 87070; 87075; 87205 ==

== ENCOUNTER 2020-02-19 22:40 | Emergency (ER) | payer OTHER ==
[~2020-02-19] VITALS: Ht 177.8 cm; Wt 109.3 kg
[2020-02-19] MEDS ORDERED: OLANZAPINE PO (23:04)
[2020-02-19] MEDS ORDERED: OLANZAPINE5 M1 PO (23:04)
[2020-02-19] MEDS ORDERED: VITAMIN D (23:05)
== END 2020-02-19 23:16 | disposition home or self-care (01) ==
LOC: ER 22:40
DX: F41.9 Anxiety disorder, unspecified (principal); Z79.84 Long term (current) use of oral hypoglycemic drugs; Z79.899 Other long term (current) drug therapy
CPT/HCPCS: 99284

== ENCOUNTER 2020-04-07 09:36 | Emergency (ER) | payer OTHER ==
[~2020-04-07] VITALS: Ht 177.8 cm; Wt 104.3 kg
[~2020-04-07 09:36] MED LIST changes: -METFORMIN HCL500 M3; +METFORMIN HCL500 M3 PO; -Naltrexone HCl50 MG; +Naltrexone HCl50 MG PO; +OLANZAPINE PO; +OLANZAPINE5 M1 PO; +VITAMIN D PO
== END 2020-04-07 10:15 | disposition home or self-care (01) ==
LOC: ER 09:36
DX: Z13.39 Encounter for screening examination for other mental health and behavioral disorders (principal); E11.9 Type 2 diabetes mellitus without complications; F17.210 Nicotine dependence, cigarettes, uncomplicated; Z88.4 Allergy status to anesthetic agent; Z88.8 Allergy status to other drugs, medicaments and biological substances; Z79.899 Other long term (current) drug therapy
CPT/HCPCS: 99285-25

== ENCOUNTER 2020-05-05 14:58 | Emergency (ER) | payer OTHER | END 2020-05-05 15:15 | disposition left against medical advice (07) | LOC: ER 14:58 | DX: Z53.21 Procedure and treatment not carried out due to patient leaving prior to being seen by health care provider (principal) ==

== ENCOUNTER 2020-05-17 14:46 | Emergency (ER) | payer OTHER ==
[~2020-05-17] VITALS: Ht 182.9 cm; Wt 99.8 kg
== END 2020-05-17 16:22 | disposition left against medical advice (07) ==
LOC: ER 14:46
DX: R44.1 Visual hallucinations (principal); Z53.21 Procedure and treatment not carried out due to patient leaving prior to being seen by health care provider
CPT/HCPCS: 99282

== ENCOUNTER 2020-06-23 10:41 | Emergency (ER) | payer OTHER ==
[~2020-06-23] VITALS: Ht 177.8 cm; Wt 106.6 kg
[2020-06-23] MEDS ORDERED: LITHIUM CARBON300 M6 PO (11:19)
== END 2020-06-23 11:38 | disposition left against medical advice (07) ==
LOC: ER 10:41
DX: Z53.21 Procedure and treatment not carried out due to patient leaving prior to being seen by health care provider (principal)

== ENCOUNTER 2020-09-07 16:58 | Emergency (ER) | payer OTHER ==
[~2020-09-07 16:58] MED LIST changes: +LITHIUM CARBON300 M6 PO
== END 2020-09-07 17:19 | disposition left against medical advice (07) ==
LOC: ER 16:58
DX: Z53.21 Procedure and treatment not carried out due to patient leaving prior to being seen by health care provider (principal)

== ENCOUNTER 2020-12-10 11:35 | Emergency (ER) | payer MEDICARE, OTHER ==
[~2020-12-10] VITALS: Ht 177.8 cm; Wt 104.3 kg
[2020-12-10 12:16] LABS: BASOPHILS ABSOLUTE AUTO 0.07 K/mm3 (0.00-0.23); BASOPHILS PERCENT AUTO 1 % (0-2); EOSINOPHILS ABSOLUTE AUTO 0.24 K/mm3 (0.00-0.68); EOSINOPHILS PERCENT AUTO 2 % (0-6); Hematocrit 47.7 % (37.0-53.0); Hemoglobin 16.1 g/dL (13.5-17.5); IMMATURE GRAN ABSOLUTE AUTO 0.07 K/mm3 (0.00-0.10); IMMATURE GRAN PERCENT AUTO 1 % (0-1); LYMPHOCYTES ABSOLUTE AUTO 2.34 K/mm3 (0.84-5.20); LYMPHOCYTES PERCENT AUTO 19 % (21-46); MONOCYTES ABSOLUTE AUTO 0.75 K/mm3 (0.16-1.47); MONOCYTES PERCENT AUTO 6 % (4-13); Mean Corpuscular HGB 30.3 pg (26.0-34.0); Mean Corpuscular HGB Conc 33.8 g/dL (31.5-36.5); Mean Corpuscular Volume 90 fL (80-100); Mean Platelet Volume 9.6 fL (9.1-12.4); NEUTROPHILS ABSOLUTE AUTO 8.63 K/mm3 (1.96-9.15); NEUTROPHILS PERCENT AUTO 71 % (41-73); Platelet Count 230 K/mm3 (150-400); RDW Coefficient Variation 12.1 % (11.7-14.2); RDW Standard Deviation 39.7 fL (35.1-46.3); Red Blood Cell Count 5.31 M/mm3 (4.30-5.90)
[2020-12-10 12:52] LABS: Alanine Aminotransfer (ALT/SGP 43 U/L (12-78); Albumin, Blood 3.5 g/dL (3.4-5.0); Albumin/Globulin Ratio 0.9 (0.8-1.8); Alk Phos 88 U/L (50-136); Anion Gap 9 mmol/L (6-16); Aspartate Aminotrans (AST/SGOT 25 U/L (12-37); Bilirubin, Total 0.4 mg/dL (0.1-1.0); Blood Urea Nitrogen 7 mg/dL (8-24); CO2, Blood 23 mmol/L (21-32); Calcium, Blood 8.7 mg/dL (8.5-10.1); Chloride, Blood 104 mmol/L (98-108); Ethanol (Alcohol), Blood, Med <3 mg/dL; Globulin, Blood 3.7 g/dL (2.2-4.0); Glomerular Filtration Rate >60 (60-); Glucose, Blood 304 mg/dL (70-99); Potassium, Blood 3.8 mmol/L (3.5-5.5); Salicylate 5.1 mg/dL (2.8-20.0); Sodium, Blood 136 mmol/L (136-145); Total Protein, Blood 7.2 g/dL (6.4-8.2)
[2020-12-10 13:18] LABS: Acetaminophen, Random <2.0 ug/mL (10.0-30.0)
[2020-12-10 13:43] LABS: U Cannabinoids Screen DETECTED; U Oxycodone Screen DETECTED
[2020-12-10 13:44] LABS: U Amphetamine Screen Not Detected; U Barbituate Screen Not Detected; U Benzodiazapine Screen Not Detected; U Buprenorphine Screen Not Detected; U Cocaine Screen Not Detected; U Methadone Screen Not Detected; U Methamphetamine Screen Not Detected; U Opiates Screen Not Detected; U Phencyclidine Screen Not Detected; U Propoxyphene Screen Not Detected
== END 2020-12-10 13:12 | disposition left against medical advice (07) ==
LOC: ER 11:35
PROVIDERS: Emergency Medicine Emergency Medical Services
DX: F22 Delusional disorders (principal); Z53.21 Procedure and treatment not carried out due to patient leaving prior to being seen by health care provider
CPT/HCPCS: 36415; 80053; 85025; 99284; G0480

== ENCOUNTER 2020-12-30 15:46 | Emergency (ER) | payer MEDICARE, OTHER | END 2020-12-31 17:41 | disposition left against medical advice (07) | LOC: ER 15:46 | DX: Z53.21 Procedure and treatment not carried out due to patient leaving prior to being seen by health care provider (principal) ==

== ENCOUNTER 2021-01-25 12:35 | Emergency (ER) | payer MEDICARE, OTHER ==
[~2021-01-25] VITALS: Ht 177.8 cm; Wt 104.3 kg
== END 2021-01-25 13:36 | disposition left against medical advice (07) ==
LOC: ER 12:35
DX: R44.0 Auditory hallucinations (principal); Z53.21 Procedure and treatment not carried out due to patient leaving prior to being seen by health care provider
CPT/HCPCS: 99284

== ENCOUNTER 2021-03-26 15:29 | Emergency (ER) | payer MEDICARE, OTHER ==
[~2021-03-26] VITALS: Ht 177.8 cm; Wt 100.7 kg
[2021-03-26 17:10] LABS: Source, Urine Clean Catch
[2021-03-26 17:38] LABS: Appearance, Urine Clear (Clear); Bilirubin, Urine Neg (Neg); Blood, Urine Neg (Neg); Color, Urine Yellow (P-Yellow); Glucose Qualitative, Urine Neg (Neg); Ketones, Urine Neg (Neg); Leukocyte Esterase, Urine Neg (Neg); Nitrite, Urine Neg (Neg); Protein, Urine 1+ (Neg); Urobilinogen, Urine NORM (Normal)
[2021-03-26 17:48] LABS: U Amphetamine Screen Not Detected; U Barbituate Screen Not Detected; U Benzodiazapine Screen Not Detected; U Buprenorphine Screen Not Detected; U Cannabinoids Screen DETECTED; U Cocaine Screen Not Detected; U Methadone Screen Not Detected; U Methamphetamine Screen Not Detected; U Opiates Screen Not Detected; U Oxycodone Screen Not Detected; U Phencyclidine Screen Not Detected; U Propoxyphene Screen Not Detected
== END 2021-03-26 19:35 | disposition left against medical advice (07) ==
LOC: ER 15:29
PROVIDERS: Physician Assistant
DX: Z53.21 Procedure and treatment not carried out due to patient leaving prior to being seen by health care provider (principal); Z79.899 Other long term (current) drug therapy
CPT/HCPCS: 99282

== ENCOUNTER 2021-04-06 18:14 | Emergency (ER) | payer MEDICARE, OTHER | END 2021-04-06 18:52 | disposition left against medical advice (07) | LOC: ER 18:14 | DX: Z53.21 Procedure and treatment not carried out due to patient leaving prior to being seen by health care provider (principal) ==

== ENCOUNTER 2021-04-11 12:41 | Emergency (ER) | payer MEDICARE, OTHER | END 2021-04-11 12:56 | disposition left against medical advice (07) | LOC: ER 12:41 | DX: Z53.21 Procedure and treatment not carried out due to patient leaving prior to being seen by health care provider (principal) ==

== ENCOUNTER → 2021-04-27 18:38 | Emergency (ER) | payer MEDICARE, OTHER | END | disposition left against medical advice (07) | LOC: ER 18:38 | DX: Z53.21 Procedure and treatment not carried out due to patient leaving prior to being seen by health care provider (principal) ==

== ENCOUNTER 2021-05-02 12:39 | Emergency (ER) | payer MEDICARE, OTHER | END 2021-05-02 12:57 | disposition left against medical advice (07) | LOC: ER 12:39 | DX: Z53.21 Procedure and treatment not carried out due to patient leaving prior to being seen by health care provider (principal) ==

== ENCOUNTER 2021-05-31 13:31 | Emergency (ER) | payer MEDICARE, OTHER | END 2021-05-31 13:50 | disposition left against medical advice (07) | LOC: ER 13:31 | DX: Z53.21 Procedure and treatment not carried out due to patient leaving prior to being seen by health care provider (principal) ==

== ENCOUNTER 2021-06-01 09:19 | Emergency (ER) | payer MEDICARE, OTHER ==
[~2021-06-01] VITALS: Ht 177.8 cm; Wt 86.2 kg
== END 2021-06-01 09:50 | disposition home or self-care (01) ==
LOC: ER 09:19
DX: F20.9 Schizophrenia, unspecified (principal); Z88.8 Allergy status to other drugs, medicaments and biological substances; Z79.899 Other long term (current) drug therapy; Z79.84 Long term (current) use of oral hypoglycemic drugs; E11.9 Type 2 diabetes mellitus without complications; F17.210 Nicotine dependence, cigarettes, uncomplicated
CPT/HCPCS: 99284

== ENCOUNTER 2021-09-26 08:27 | Emergency (ER) | payer MEDICARE, OTHER ==
[~2021-09-26] VITALS: Ht 177.8 cm; Wt 81.7 kg
[2021-09-26] MEDS ORDERED: LITH300C PO ×2 (09:33→10:42)
== END 2021-09-26 09:35 | disposition home or self-care (01) ==
LOC: ER 08:27
DX: Z76.0 Encounter for issue of repeat prescription (principal); F17.210 Nicotine dependence, cigarettes, uncomplicated; Z88.8 Allergy status to other drugs, medicaments and biological substances; Z79.899 Other long term (current) drug therapy
CPT/HCPCS: 99281

== ENCOUNTER 2023-02-20 01:21 | Emergency (ER) | payer MEDICARE, OTHER ==
[~2023-02-20] VITALS: Ht 177.8 cm; Wt 90.7 kg
[~2023-02-20 01:21] MED LIST changes: +LITH300C PO
[2023-02-20 01:28] VITALS: BP 148/97
== END 2023-02-20 02:33 | disposition left against medical advice (07) ==
LOC: ER 01:21
DX: R22.0 Localized swelling, mass and lump, head (principal); Z53.29 Procedure and treatment not carried out because of patient's decision for other reasons; F20.9 Schizophrenia, unspecified; F17.210 Nicotine dependence, cigarettes, uncomplicated; Z88.8 Allergy status to other drugs, medicaments and biological substances; Z88.5 Allergy status to narcotic agent; Z79.899 Other long term (current) drug therapy; Z79.84 Long term (current) use of oral hypoglycemic drugs
CPT/HCPCS: 99281

== ENCOUNTER 2023-10-21 00:27 | Emergency (ER) | payer OTHER ==
[~2023-10-21] VITALS: Ht 177.8 cm; Wt 99.8 kg
[~2023-10-21 00:27] MED LIST changes: +AMOCLA875 PO
[2023-10-21 00:38] VITALS: BP 128/85
== END 2023-10-21 03:45 | disposition home or self-care (01) ==
LOC: ER 00:27
DX: F22 Delusional disorders (principal); F20.9 Schizophrenia, unspecified; E11.9 Type 2 diabetes mellitus without complications; F17.210 Nicotine dependence, cigarettes, uncomplicated; Z88.5 Allergy status to narcotic agent; Z88.8 Allergy status to other drugs, medicaments and biological substances; Z79.84 Long term (current) use of oral hypoglycemic drugs; Z79.899 Other long term (current) drug therapy
CPT/HCPCS: 99284

== ENCOUNTER 2023-12-21 20:27 | Emergency (ER) | payer OTHER ==
[~2023-12-21] VITALS: Ht 177.8 cm; Wt 89.4 kg
[2023-12-21 20:53] VITALS: BP 147/98
== END 2023-12-21 21:47 | disposition home or self-care (01) ==
LOC: ER 20:27
DX: F20.0 Paranoid schizophrenia (principal); F17.210 Nicotine dependence, cigarettes, uncomplicated; Z79.84 Long term (current) use of oral hypoglycemic drugs; Z79.899 Other long term (current) drug therapy; Z88.5 Allergy status to narcotic agent; Z88.8 Allergy status to other drugs, medicaments and biological substances
CPT/HCPCS: 99282

== ENCOUNTER 2024-01-24 03:08 | Emergency (ER) | payer OTHER ==
[~2024-01-24] VITALS: Ht 177.8 cm; Wt 86.2 kg
[2024-01-24 03:16] VITALS: BP 145/91
[2024-01-24] MEDS ORDERED: OLANZapine ODT 5 MG Tab MM ONE (03:20)
== END 2024-01-24 03:30 | disposition home or self-care (01) ==
LOC: ER 03:08
DX: F41.9 Anxiety disorder, unspecified (principal); E11.9 Type 2 diabetes mellitus without complications; F20.9 Schizophrenia, unspecified; F17.210 Nicotine dependence, cigarettes, uncomplicated; Z88.5 Allergy status to narcotic agent; Z79.84 Long term (current) use of oral hypoglycemic drugs; Z79.899 Other long term (current) drug therapy
CPT/HCPCS: 99281; A9270

== ENCOUNTER 2024-01-25 11:41 | Emergency (ER) | payer OTHER ==
[~2024-01-25] VITALS: Ht 175.3 cm; Wt 81.7 kg
[2024-01-25 11:51] VITALS: BP 152/87
[2024-01-25] MEDS ORDERED: OLANZapine ODT 5 MG Tab PO ONE (11:55)
== END 2024-01-25 12:10 | disposition home or self-care (01) ==
LOC: ER 11:41
DX: F41.9 Anxiety disorder, unspecified (principal); E11.9 Type 2 diabetes mellitus without complications; F17.210 Nicotine dependence, cigarettes, uncomplicated; Z86.59 Personal history of other mental and behavioral disorders; Z79.84 Long term (current) use of oral hypoglycemic drugs; Z79.899 Other long term (current) drug therapy; Z88.5 Allergy status to narcotic agent; Z88.8 Allergy status to other drugs, medicaments and biological substances
CPT/HCPCS: 99282; A9270

== ENCOUNTER 2024-02-26 11:55 | Emergency (ER) | payer OTHER ==
[~2024-02-26] VITALS: Ht 170.2 cm; Wt 81.7 kg
[~2024-02-26 11:55] MED LIST changes: +IBUP800 PO
== END 2024-02-26 14:25 | disposition left against medical advice (07) ==
LOC: ER 11:55
DX: F41.9 Anxiety disorder, unspecified (principal); Z53.21 Procedure and treatment not carried out due to patient leaving prior to being seen by health care provider
CPT/HCPCS: 99281

== ENCOUNTER 2024-03-08 06:23 | Emergency (ER) | payer OTHER ==
[~2024-03-08] VITALS: Ht 180.3 cm; Wt 86.2 kg
[2024-03-08 07:28] VITALS: BP 132/98
[2024-03-08] MEDS ORDERED: OLANZapine ODT 5 MG Tab PO ONE (08:30)
== END 2024-03-08 08:36 | disposition home or self-care (01) ==
LOC: ER 06:23
DX: F22 Delusional disorders (principal); E11.9 Type 2 diabetes mellitus without complications; F17.210 Nicotine dependence, cigarettes, uncomplicated; Z76.0 Encounter for issue of repeat prescription; Z79.84 Long term (current) use of oral hypoglycemic drugs; Z79.899 Other long term (current) drug therapy; Z88.5 Allergy status to narcotic agent; Z88.8 Allergy status to other drugs, medicaments and biological substances
CPT/HCPCS: 99284

== ENCOUNTER 2024-04-27 05:49 | Emergency (ER) | payer OTHER ==
[~2024-04-27] VITALS: Ht 177.8 cm; Wt 74.8 kg
[2024-04-27 05:53] VITALS: BP 140/95
[2024-04-27] MEDS ORDERED: OLANZapine 10 MG Tab PO ONE (06:45)
== END 2024-04-27 06:48 | disposition left against medical advice (07) ==
LOC: ER 05:49
DX: R44.3 Hallucinations, unspecified (principal); F12.90 Cannabis use, unspecified, uncomplicated; E11.9 Type 2 diabetes mellitus without complications; F17.210 Nicotine dependence, cigarettes, uncomplicated; Z79.84 Long term (current) use of oral hypoglycemic drugs; Z79.899 Other long term (current) drug therapy; Z88.5 Allergy status to narcotic agent; Z88.8 Allergy status to other drugs, medicaments and biological substances
CPT/HCPCS: 99281

== ENCOUNTER 2024-04-29 12:09 | Emergency (ER) | payer OTHER ==
[~2024-04-29] VITALS: Ht 180.3 cm; Wt 80.7 kg
[2024-04-29 12:16] VITALS: BP 139/89
[2024-04-29 12:33] LABS: Source, Urine Clean Catch
[2024-04-29 12:38] LABS: Appearance, Urine Clear (Clear); Bilirubin, Urine Neg (Neg); Blood, Urine Neg (Neg); Glucose Qualitative, Urine Neg (Neg); Ketones, Urine Neg (Neg); Leukocyte Esterase, Urine Neg (Neg); Nitrite, Urine Neg (Neg); Protein, Urine Neg (Neg); Specific Gravity, Urine 1.005 (1.003-1.022); Urobilinogen, Urine NORM (Normal)
[2024-04-29 12:52] LABS: Color, Urine Pale Yellow (P-Yellow)
[2024-04-29 12:58] LABS: U Amphetamine Screen Not Detected; U Barbituate Screen Not Detected; U Benzodiazapine Screen Not Detected; U Buprenorphine Screen Not Detected; U Cannabinoids Screen Not Detected; U Cocaine Screen Not Detected; U Methadone Screen Not Detected; U Methamphetamine Screen Not Detected; U Opiates Screen Not Detected; U Oxycodone Screen Not Detected; U Phencyclidine Screen Not Detected
== END 2024-04-29 13:18 | disposition home or self-care (01) ==
LOC: ER 12:09
PROVIDERS: Physician Assistant
DX: F23 Brief psychotic disorder (principal); E11.9 Type 2 diabetes mellitus without complications; F17.210 Nicotine dependence, cigarettes, uncomplicated; Z88.5 Allergy status to narcotic agent; Z88.8 Allergy status to other drugs, medicaments and biological substances; Z79.84 Long term (current) use of oral hypoglycemic drugs
CPT/HCPCS: 81003; 99283

== ENCOUNTER 2024-05-03 10:09 | Emergency (ER) | payer OTHER ==
[~2024-05-03] VITALS: Ht 167.6 cm; Wt 72.6 kg
[2024-05-03 10:26] VITALS: BP 139/85
== END 2024-05-03 10:31 | disposition home or self-care (01) ==
LOC: ER 10:09
DX: E11.65 Type 2 diabetes mellitus with hyperglycemia (principal); Z87.891 Personal history of nicotine dependence; Z79.899 Other long term (current) drug therapy; Z79.84 Long term (current) use of oral hypoglycemic drugs; Z88.5 Allergy status to narcotic agent; Z88.8 Allergy status to other drugs, medicaments and biological substances
CPT/HCPCS: 82947; 99283

== ENCOUNTER 2024-05-03 18:34 | Emergency (ER) | payer OTHER ==
[~2024-05-03] VITALS: Ht 172.7 cm; Wt 90.7 kg
[2024-05-03 19:06] VITALS: BP 162/95
== END 2024-05-03 19:15 | disposition home or self-care (01) ==
LOC: ER 18:34
DX: Z76.89 Persons encountering health services in other specified circumstances (principal); Z59.00 Homelessness unspecified; F17.210 Nicotine dependence, cigarettes, uncomplicated; E11.9 Type 2 diabetes mellitus without complications; Z79.84 Long term (current) use of oral hypoglycemic drugs; Z79.899 Other long term (current) drug therapy; Z88.5 Allergy status to narcotic agent; Z88.8 Allergy status to other drugs, medicaments and biological substances
CPT/HCPCS: 99282

== ENCOUNTER 2024-05-11 01:06 | Emergency (ER) | payer OTHER ==
[~2024-05-11] VITALS: Ht 177.8 cm; Wt 83.9 kg
[2024-05-11 01:11] VITALS: BP 128/82
[2024-05-11] MEDS ORDERED: OLANZapine 5 MG Tab PO ONE (01:50)
== END 2024-05-11 02:42 | disposition left against medical advice (07) ==
LOC: ER 01:06
DX: F20.9 Schizophrenia, unspecified (principal); E11.9 Type 2 diabetes mellitus without complications; Z87.891 Personal history of nicotine dependence; Z88.5 Allergy status to narcotic agent; Z88.8 Allergy status to other drugs, medicaments and biological substances; Z79.84 Long term (current) use of oral hypoglycemic drugs; Z79.899 Other long term (current) drug therapy
CPT/HCPCS: 99283; A9270

== ENCOUNTER 2024-05-16 22:10 | Emergency (ER) | payer OTHER ==
[~2024-05-16] VITALS: Ht 175.3 cm; Wt 77.1 kg
[2024-05-16 22:31] VITALS: BP 123/82
== END 2024-05-17 01:46 | disposition left against medical advice (07) ==
LOC: ER 22:10
DX: F29 Unspecified psychosis not due to a substance or known physiological condition (principal); Z53.29 Procedure and treatment not carried out because of patient's decision for other reasons
CPT/HCPCS: 99281

== ENCOUNTER 2024-05-19 18:17 | Emergency (ER) | payer OTHER | END 2024-05-19 19:35 | disposition left against medical advice (07) | LOC: ER 18:17 | DX: Z53.21 Procedure and treatment not carried out due to patient leaving prior to being seen by health care provider (principal) | CPT/HCPCS: 99281; 99284 ==

== ENCOUNTER 2024-05-23 04:55 | Observation (INO) | payer OTHER ==
[~2024-05-23] VITALS: Ht 175.3 cm; Wt 95.2 kg
[2024-05-23 05:06] VITALS: BP 120/74
[2024-05-23] MEDS ORDERED: OLANZapine ODT 5 MG Tab MM ONE ×2 (06:15→06:40)
[2024-05-23 06:58] LABS: BASOPHILS ABSOLUTE AUTO 0.03 K/mm3 (0.00-0.23); BASOPHILS PERCENT AUTO 0 % (0-2); EOSINOPHILS ABSOLUTE AUTO 0.17 K/mm3 (0.00-0.68); EOSINOPHILS PERCENT AUTO 2 % (0-6); Hematocrit 43.5 % (37.0-53.0); Hemoglobin 14.8 g/dL (13.5-17.5); IMMATURE GRAN ABSOLUTE AUTO 0.03 K/mm3 (0.00-0.10); IMMATURE GRAN PERCENT AUTO 0 % (0-1); LYMPHOCYTES ABSOLUTE AUTO 2.13 K/mm3 (0.84-5.20); LYMPHOCYTES PERCENT AUTO 20 % (21-46); MONOCYTES ABSOLUTE AUTO 0.66 K/mm3 (0.16-1.47); MONOCYTES PERCENT AUTO 6 % (4-13); Mean Corpuscular HGB 31.3 pg (26.0-34.0); Mean Corpuscular Volume 92 fL (80-100); Mean Platelet Volume 9.4 fL (9.1-12.4); NEUTROPHILS ABSOLUTE AUTO 7.47 K/mm3 (1.96-9.15); NEUTROPHILS PERCENT AUTO 71 % (41-73); Platelet Count 234 K/mm3 (150-400); RDW Coefficient Variation 13.3 % (11.7-14.2); Red Blood Cell Count 4.73 M/mm3 (4.30-5.90); White Blood Cell Count 10.49 K/mm3 (4.00-11.30)
[2024-05-23 07:21] LABS: Acetaminophen, Random <2.0 ug/mL (10.0-30.0); Alanine Aminotransfer (ALT/SGP 15 U/L (12-78); Albumin, Blood 3.3 g/dL (3.4-5.0); Alk Phos 81 U/L (50-136); Anion Gap 10 mmol/L (3-11); Aspartate Aminotrans (AST/SGOT 11 U/L (12-37); Bilirubin, Total 0.5 mg/dL (0.1-1.0); Blood Urea Nitrogen 12 mg/dL (8-24); Bun/Creatinine Ratio 19.2 (12.0-20.0); CO2, Blood 26 mmol/L (21-32); Calcium, Blood 9.1 mg/dL (8.5-10.1); Chloride, Blood 106 mmol/L (98-108); Creatinine, Blood 0.62 mg/dL (0.60-1.20); Ethanol (Alcohol), Blood, Med <3 mg/dL; Globulin, Blood 3.2 g/dL (2.2-4.0); Glomerular Filtration Rate 118 (60-); Glucose, Blood 208 mg/dL (70-99); Potassium, Blood 3.8 mmol/L (3.5-5.5); Salicylate 3.8 mg/dL (2.8-20.0); Sodium, Blood 138 mmol/L (136-145); Total Protein, Blood 6.5 g/dL (6.4-8.2)
[2024-05-23 07:33] LABS: Lithium <0.20 mmol/L (0.60-1.20)
[2024-05-23] MEDS ORDERED: Nicotine Polacrilex 2 MG Gum PO PRN (07:40)
[2024-05-23] MEDS ORDERED: Nicotine 21 MG PATCH TOP ONE (07:40)
[2024-05-23 09:37] LABS: Source, Urine Clean Catch
[2024-05-23 09:50] LABS: Appearance, Urine Clear (Clear); Bilirubin, Urine Neg (Neg); Blood, Urine Neg (Neg); Color, Urine Yellow (P-Yellow); Glucose Qualitative, Urine Neg (Neg); Ketones, Urine Neg (Neg); Leukocyte Esterase, Urine Neg (Neg); Nitrite, Urine Neg (Neg); Protein, Urine Neg (Neg); Urobilinogen, Urine NORM (Normal)
[2024-05-23 10:03] LABS: U Amphetamine Screen Not Detected; U Barbituate Screen Not Detected; U Benzodiazapine Screen Not Detected; U Buprenorphine Screen Not Detected; U Cannabinoids Screen DETECTED; U Cocaine Screen Not Detected; U Methadone Screen Not Detected; U Methamphetamine Screen Not Detected; U Opiates Screen Not Detected; U Oxycodone Screen Not Detected; U Phencyclidine Screen Not Detected
[2024-05-30] MEDS ORDERED: GLIMEPIRIDE4 MG (14:06)
[2024-05-31] MEDS ORDERED: [UNRECOGNIZED DRUG - CODE] PO (09:21)
[2024-05-31] MEDS ORDERED: DIVA250ER PO (09:25)
== END 2024-05-23 13:42 | disposition other institution (70) ==
LOC: ER 04:55 → EOR 04:56
PROVIDERS: ADMIT Student in an Organized Health Care Education/Training Program
DX: F20.9 Schizophrenia, unspecified (principal); R45.851 Suicidal ideations; E11.65 Type 2 diabetes mellitus with hyperglycemia; F17.210 Nicotine dependence, cigarettes, uncomplicated; Z79.84 Long term (current) use of oral hypoglycemic drugs; Z79.899 Other long term (current) drug therapy; Z88.5 Allergy status to narcotic agent; Z88.8 Allergy status to other drugs, medicaments and biological substances
CPT/HCPCS: 36415; 80053; 80178; 80320; 81003; 85025; 93005; 93010; 99285-25; A9270; G0378; G0480

== ENCOUNTER 2024-05-23 10:26 | Inpatient (IN) | payer OTHER ==
[~2024-05-23] VITALS: Ht 177.8 cm; Wt 86.4 kg
--- NOTE | 2024-05-23 15:07 | NUR ---
PT ARRIVED AT THE U AT 1342. PT FROM THE ED FOR SI WTH A PLAN TO HARMSELF. PLAN WAS TO TAKE A BUNCH OF PILLS, BUT SOMEONE STOLE THEM ALL PER PT. PT ALERT AND ORIENTED X3. IS UNINTERESTED IN ADMISSION PROCESS. IS EATING DURING ADMIT. PT STATES THAT [place] AND IS HOMELESS. UNABLE TO DO FULL INTERVIEW INTAKE PT STOPPED IN THE MIDDLE STATING "I DON'T WANT TO DO THIS ANYMORE." TRIED TO GET HIM TO FINISH NOT MUCH MORE TO COMPLETE INTAKE. MED RECONCILATION REVIEWED BUT PT JUST SAID "YEAH" WHEN ASKED IF THIS WAS HIS MED." DOES KNOW THAT HE TAKES METFORMIN FOR HIS DIABETES. PT DISHEVELED IN HYGIENE AND NEEDS TO SHOWER. PT UNINTERRESTED IN TOUR AND EXPECTATIONS OF REQUIRMENTS OF THE U. PT JUST WANTED TO GO TO BED WHEN REACHING HIS ROOM. DID NO ORIENTATE TO THE RESTROOM FOR SHOWERING AT THIS TIME. LET PT KNOW HE NEEDS TO SHOWER. DID NOT ACKNOWLEGE TO THE FACT. WILL CONTINUE TO MONITOR FOR SAFETY.
[2024-05-23] MEDS ORDERED: Polyethylene Glycol 3350 17 gm PO PRN (15:10)
[2024-05-23] MEDS ORDERED: TraZODone HCl 50 MG Tab PO PRN (15:10)
[2024-05-23] MEDS ORDERED: Melatonin 3 MG Tab PO PRN (15:10)
[2024-05-23] MEDS ORDERED: Aluminum Hydroxide 320MG/5ML 473 ML PO PRN (15:10)
[2024-05-23] MEDS ORDERED: OLANZapine ODT 10 MG Tab MM PRN (15:10)
[2024-05-23] MEDS ORDERED: HydrOXYzine Pamoate 50 MG Cap PO PRN (15:15)
[2024-05-23] MEDS ORDERED: Ibuprofen 600 MG Tab PO PRN (15:15)
[2024-05-23] MEDS ORDERED: Acetaminophen 325 MG TABLET PO PRN (15:15)
[2024-05-23] MEDS ORDERED: FLU VACC TS2024-25(6MOS UP)/PF 45 MCG/0.5 ML SYRINGE IM ONE (15:15)
[2024-05-23] MEDS ORDERED: Calcium Carbonate 500 MG Tab Chew PO PRN (15:15)
[2024-05-23] MEDS ORDERED: Ondansetron 4 MG SoluTab MM PRN (15:25)
--- NOTE | 2024-05-23 16:57 | NUR ---
SHIFT SUMMARY: SEE PREVIOUS NOTE. PT HAS SLEPT SINCE HE WENT TO BED AT ADMIT TIME. PT DID NOT FINISH INTAKE INTERVIEW STATING " I DON'T WANT TO DO THIS" ATE HIS LUNCH AND WENT TO BED WITH OUT FINISHING TOUR OF THE UNIT. WILL CONTINUE TO MONITOR.
[2024-05-23] MEDS ORDERED: MetFORMIN HCl 500 mg PO SCH (17:00)
[2024-05-23] MEDS ORDERED: Glimepiride 1 MG Tablet PO SCH (21:00)
[2024-05-23] MEDS ORDERED: OLANZapine 10 MG Tab PO SCH (21:00)
[2024-05-23] MEDS ORDERED: Lithium Carbonate 450 MG TabCR PO SCH (21:00)
[2024-05-23 21:05] VITALS: BP 116/76; BP 126/86
--- NOTE | 2024-05-23 22:10 | NUR ---
NURSING UPDATE PT WAS LAYING IN BED AT START OF SHIFT, AWAKES EASILY. HE DENIES ANY SI OR HI, BUT SEEMS IRRITATED WITH QUESTIONS AND WOULD NOT ANSWER IF HE IS HAVING ANY HALLUCINATIONS. AFTER PT WAS GIVEN HIS EVENING SNACK HE WAS OBSERVED OPENING THE FRIDGE TO GET MORE. WHEN THIS RN TOLD PT THAT HE NEEDED TO ASK FOR ASSITANCE WITH OBTAINING FOOD HE BECAME IRRITATED, TOOK THE DRINK HE HAD GRABBED, OPENED IT UP AND POURED IT IN THE TRASH. PT USING PROFANITY WITH STAFF. HE WAS INFORMED THAT THIS IS UNACCEPTABLE BEHAVIOR AND WENT TO HIS ROOM. PT TOOK HIS SCHEDULED LITHIUM AND ZYPREXA, HE WAS ALSO GIVEN PRN TRAZODONE. PT STATED HE WANTED TO LEAVE AND ASKED IF HE WAS ON A HOLD. THIS RN INFORMED HIM THAT HE IS ON A VOLUNATRY HOLD. PT REMINEDED OF EXPECTATIONS WHILE ON THE UNIT. HE USED THE SENSORY ROOM FOR A SHORT TIME AND THEN WENT TO BED. REPORT GIVEN TO STACEY KHAN WHO IS ASSUMING CARE OF PATIENT AT THIS TIME.
--- NOTE | 2024-05-24 04:07 | NUR ---
SHIFT UPDATE REASSUMED CARE OF PT AT 2330. PT WENT TO BED AT APPROXIMATELY 2115 AND HAS APPEARED TO SLEEP, WITH RESPIRATIONS CONFIRMED. Q15 MINUTE CHECKS TO CONTINUE PER UNIT PROTOCOL.
[2024-05-24 08:04] VITALS: BP 130/78
--- NOTE | 2024-05-24 08:57 | NUR ---
SHIFT ASSESSMENT: PT DENIED SI, HI, AVH, ANXIETY AND PAIN. HOWEVER HE WAS WALKING THE HALLS RESPONDING TO INTERNAL STIMULI...TALKING AND BERATING SOMEONE FOR TELLING HIM WHAT TO DO. AND THEN IS ANGRY WITH THE OTHER PT'S FOR LOOKING AT HIM. HIS AFFECT IS CONSTRICTED. HE VERBALIZED WANTING TO LEAVE THE UNIT TODAY.
[2024-05-24] MEDS ORDERED: Multivitamins 1 Tab PO SCH (09:00)
[2024-05-24] MEDS ORDERED: DiphenhydrAMINE HCl 50 MG/ML 1ML Vial IM PRN ×2 (11:10→16:15)
[2024-05-24] MEDS ORDERED: Haloperidol Lactate Inj. 5 MG/ML Injection IM PRN ×2 (11:15→16:15)
[2024-05-24] MEDS ORDERED: LORazepam 2 MG/ML 1ML Injection IM PRN ×2 (11:15→16:15)
--- NOTE | 2024-05-24 15:51 | NUR ---
PT REQUESTED "A SHOT TO MAKE ME FEEL BETTER." 15:42 HE WAS GIVEN ATIVAN 2MG, HALDOL 5MG LEFT DELTOID IM AND BENEDRYL 50MG TO THE RIGHT DELTOID IM. 15;56 PT WAS WALKING IN THE HALLWAY FOR A FEW MINUTES AND IS NOW LAYING ON HIS BED QUIETLY.
--- NOTE | 2024-05-24 16:14 | NUR ---
15:39 PT HAD A MASS SCORE OF 12.
--- NOTE | 2024-05-24 17:14 | NUR ---
PT HAS BEEN MUCH MORE CALM, "I FEEL BETTER." HE IS IN THE DINNING ROOM EATING DINNER AT THIS TIME. HE TORE TWO SCRUB TOMS SO WILL NOW BE IN PAPER SCRUBS SHIRTS.
[2024-05-24 20:53] VITALS: BP 125/76
--- NOTE | 2024-05-25 05:14 | NUR ---
SHIFT NOTE PT UP FOR SNACK AND PARTICIPATED IN COMPLETING THE COMMUNITY WRAP-UP FORM. PT PT DENIES ANY SI/HI/AVTH. HE WENT TO HIS ROOM AND WENT TO BED AFTER EVENING SNACK. PT ANSWERED ALL QUESTIONS BUT USED SHORT ANSWERS AND DID NOT APPEAR TO BE INTERESTED IN CONVERSING. HE WAS CALM AND COMPLIANT WITH MEDICATIONS. DENIES ANY ANXIETY. WILL CONTINUE EVERY 15 MIN SAFETY CHECKS.
[2024-05-25 08:03] LABS: CHOL/HDL RATIO 2.8; Cholesterol 155 mg/dL (50-200); HDL Cholesterol 56 mg/dL (>39); LDL/HDL RATIO 1.4; Low Density Lipoprotein Chol 79 mg/dL (0-110); Triglycerides 98 mg/dL (30-160); Very Low Density Lipoprot Chol 19 mg/dL (6-32)
[2024-05-25] MEDS ORDERED: Divalproex Sodium 500 MG TABLET.DR PO SCH (09:00)
[2024-05-25] MEDS ORDERED: Nicotine Polacrilex 2 MG Gum PO PRN (09:55)
[2024-05-25] MEDS ORDERED: Divalproex Sodium 500 MG TABCR PO ONE (10:45)
[2024-05-25] MEDS ORDERED: Nicotine 21 MG PATCH TOP ONE ×2 (11:25→21:35)
--- NOTE | 2024-05-25 18:10 | NUR ---
SHIFT SUMMARY PT HAS BEEN UP AND AROUND THE [facility] ALL SHIFT, PARTICIPATING IN MEALS AND GROUP ACTIVITIES AND TV ROOM. AT START OF SHIFT AROUND 0800/0830 HE STARTED PACING IN THE HOU, VERBALLY TALKING TO SELF AND STARTED INCREASING AGITATION. HE WAS OFFERED XYPREXA WHICH HE TOOK, HE ASKED FRO ANOTHER ONE WHICH WAS GIVEN. HE HAS BEEN FINE AND APPROPRIATE SINCE. DURING PT'S ACTING UP PROVIDER ARRIVED, THEY DISCUSSED THE PT WANTING TO DC, CLEARLY PT WAS BECOMING EVEN MORE UPSET. HE WAS TOLD HE WILL NEED TO TAKE HIS MEDS WITH IM'S AND REMAIN COOPERATIVE. PT WAS ABLE TO REGAIN HIS COMPOSURE. COMPLIANT WITH MEDS TODAY
--- NOTE | 2024-05-25 18:25 | NUR ---
SHIFT SUMMARY PT HAS BEEN UP TO MEALS, COOPERATIVE HOWEVER HAS REMAINED IN HIS ROOM ALL DAY. COMPLAINT TO MEDICATION, DIFFICULT TO HAVE HIM RETURN CONVERSATION.
--- NOTE | 2024-05-25 21:53 | NUR ---
NICOTINE PATCH: NICOTINE PATCH REMOVED AT PATIENT REQUEST AT 2109. PATIENT REQUESTED NICORETTE GUM AT 2109.
--- NOTE | 2024-05-26 04:24 | NUR ---
SHIFT SUMMARY: PATIENT WAS IN THE [facility] WATCHING TELEVISION AT THE BEGINNING OF THE SHIFT. HE PARTICIPATED IN 2000 SNACK AND FOLLOW UP GROUP. HE WAS COMPLIANT WITH MEDICATIONS. HE STATED THAT HE WILL NOT TAKE ANY MEDICATION UNDER THE TONGUE. "I WILL SWALLOW IT BECAUSE I KNOW HOW IT WORKS. IF I LET IT MELT UNDER MY TONGUE, I HAVE TO PAY FOR IT." HE DID TAKE THE MEDICATION, AND SWALLOWED IT. HE ASKED IF HE COULD USE THE SENSORY ROOM AND SPENT ABOUT AN HOUR IN THERE. HE HAD THE LIGHTS AND SOME MUSIC. HE WAS RESPONDING TO INTERNAL STIMULI JUST BEFORE GOING INTO THE SENSORY ROOM, BUT STATED THAT BEING IN THERE "HELPED CALM THEM DOWN". HE ASKED FOR WATER X2 IN A LARGE CUP AND DRANK IT ALL. HE WENT TO BED ABOUT 2200 AND WAS NOTED TO BE RESTING QUIETLY WITH EYES CLOSED AND RESPIRATIONS CONFIRMED THROUGHOUT THE REMAINDER OF THE SHIFT, EXCEPT FOR A FEW TRIPS TO THE BATHROOM AND UP X1 ASKING WHAT THE TIME WAS AND WHEN BREAKFAST IS SERVED. HE DENIED THOUGHTS OF SI OR SELF HARM. CONTINUING TO MONITOR FOR SAFETY WITH Q15 MINUTE CHECKS.
[2024-05-26] MEDS ORDERED: Nicotine 21 MG PATCH TOP SCH (09:00)
[2024-05-26 10:21] LABS: Lithium 0.59 mmol/L (0.60-1.20)
[2024-05-26 11:11] VITALS: BP 137/80
[2024-05-26] MEDS ORDERED: Methocarbamol 500 MG Tab PO PRN (14:10)
[2024-05-26] MEDS ORDERED: LORazepam 1 MG Tab PO PRN (15:05)
[2024-05-26] MEDS ORDERED: DiphenhydrAMINE HCl 50 MG Cap PO PRN (15:05)
[2024-05-26] MEDS ORDERED: Haloperidol 5 MG Tab PO PRN (15:05)
--- NOTE | 2024-05-26 16:38 | NUR ---
SHIFT SUMMARY PT HAS BEEN UP ALL THIS SHIFT, PARTICIPATING IN THE [employer], DURING TV TIME HE IS IN/OUT OF ROOM NON STOP, PACING THE HALLWAY, NOTED INCREASING AGITATION ARRPOX 0945 AND MEDICATED WITH ZYPREXA x 2 30 MIN APART. HE HAS BEEN DOING WELL SINCE THAT TIME. MID DAY, APPROX 1530 HE ENDORSED 7/10 BACK PAIN. MEDICATED WITH IBUPROPHEN WITH RELIEF TO 3/10. LITHIUM IS INCREASED FROM 900 TO 1200MG. PT IS PACING THE FLOOR AT THIS TIME. HE HAS REMAINED COMPLIANT AND IS RECEIVING SAFETY CHECKS Q15 MIN.
[2024-05-26] MEDS ORDERED: MetFORMIN HCl 500 mg PO SCH (17:00)
[2024-05-26] MEDS ORDERED: Lithium Carbonate 300 MG TabCR PO SCH (21:00)
[2024-05-26 21:10] VITALS: BP 131/87
--- NOTE | 2024-05-27 04:27 | NUR ---
SHIFT SUMMARY: PATIENT WAS RATHER GRUMPY AT THE BEGINNING OF THE SHIFT, RESPONDING TO INTERNAL STIMULI AND CLEARLY IRRITATED BY THE VOICES, EVIDENCED BY RED FACE, RAPID PACING AND YELLING AT THE UNSEEN OTHERS. HE WAS ABLE TO QUIET SELF ENOUGH TO CONVERSE WITH RN AND EVEN MAKE SOME JOKES. HE PARTICIPATED IN SNACK AND FOLLOW UP GROUP AT 1999. HE CAME BACK OUT AND WAS PACING AND USING THE SENSORY ROOM. HE WAS COMPLIANT WITH EVENING MEDICATIONS. HE DENIED THOUGHTS OF SI/HI OR SELF HARM. HE WENT TO BED ABOUT 2100 AND WAS NOTED TO BE RESTING QUIETLY WITH EYES CLOSED AND RESPIRATIONS CONFIRMED FOR THE REMAINDER OF THE SHIFT. CONTINUING TO MONITOR FOR SAFETY WITH Q15 MINUTE CHECKS.
[2024-05-27 08:30] VITALS: BP 127/82
[2024-05-27] MEDS ORDERED: Glimepiride 4 MG Tab PO SCH (09:00)
[2024-05-27] MEDS ORDERED: Naltrexone HCl 50 MG Tab PO SCH (09:00)
[2024-05-27] MEDS ORDERED: Haloperidol 5 MG Tab PO PRN (11:30)
--- NOTE | 2024-05-27 16:43 | NUR ---
SHIFT SUMMARY PT A/0 X3 AND MENTATION SEEMS TO WAX AND WANE. PT HAS PERIODS OF AGITATION AND DECLINES TO ANSWER MOST ASSESSMENT QUESTIONS. PT ALSO SEEMS TO RESPOND TO INTERNAL STIMULI. PT WILL OFTEN BECOME FRUSTRATED AND WILL TALK TO PEOPLE THAT ARE NOT THERE. WHEN THIS RN TRIED TO INTERVIEW THE PATIENT HE REPLIED "NO THANK YOU". MEDICATED WITH PRN ZYPREXA THIS AM WITH GOOD EFFECT. PT BECAME MORE COOPERATIVE AND COHERANT AFTER GETTING HIS PRN. MEDICATED FOR BACK PAIN AND HEADACHE WELL. HE IS MONITORED VIA Q15 ROUNDING FOR SAFETY. WILL REPORT TO ONCOMING RN.
[2024-05-27 21:37] VITALS: BP 128/87
--- NOTE | 2024-05-28 04:33 | NUR ---
SHIFT SUMMARY PT IN HALLWAY AT START OF SHIFT, WAS PACING AT TIMES AND THEN WAS LAYING ON THE FLOOR. HE APPEARED TO BE IRRITATED AND RESPONDING TO INTERNAL STIMULI, WAS MUMBLING UNDER HIS BREATH ABOUT ALIENS. PT DIRECTED TO GO TO HIS ROOM TO LAY DOWN. HE REPORTED HIS MOOD "GOOD". DENIED ANY SI, BUT THEN WOULD NOT ANSWER OTHER ASSESSMENT QUESTIONS. PT WAS COMPLIANT WITH EVENING MEDS. HE RECEIVED PRN MELATONIN AND REQUESTED AND RECEIVED ROBOXIN FOR BACK SPASMS. PT HAD EVENING SNACK, AND THEN WATCHED TV FOR A SHORT TIME AND WENT TO BED. HE PRESENTED TO THE NURSES STATION AT [place] [address], HAD SOME CHAMOMILE TEA AND WENT BACK TO BED. Q15 MINUTE CHECKS TO CONTINUE PER SAFETY AND UNIT PROTOCOL.
[2024-05-28 08:39] VITALS: BP 130/83
--- NOTE | 2024-05-28 16:28 | NUR ---
SHIFT SUMMARY PT IN HALLWAY AT BEGINNING OF SHIFT AND REQUESTED MEDICATION FOR HIS BACK AND HIS MORNING MEDICATIONS. PT APPEARS CALMER THAN THE DAY PRIOR BUT STILL RESPONDING TO INTERNAL STIMULI. PT DECLINED TO ANSWER MOST INTERVIEW QUESTIONS BUT DID REPORT THAT OVERALL HE IS DOING "FINE". PT WAS HEARD YELLING AT HIS HALLUCINATIONS IN HIS ROOM BUT HAS NOT DONE SO IN FRONT OF OTHERS. HE IS CONTINUES TO BE MONITORED VIA Q15 ROUNDING PER UNIT PROTOCOL AND FOR SAFETY.
[2024-05-28] MEDS ORDERED: Haloperidol 1 MG Tab PO SCH (21:00)
[2024-05-28 21:06] VITALS: BP 134/95
--- NOTE | 2024-05-29 04:30 | NUR ---
SHIFT SUMMARY PT IN HALLWAY AT START OF SHIFT, APPEARS TO BE RESPONDING TO INTERNAL STIMULI, BUT DENIES ANY HALLUCINATIONS OR SI. HE IS CALM AND COOPERATIVE, BUT DOES NOT INTERACT VERY MUCH WITH PEERS. HE WAS COMPLIANT WITH MEDICATIONS AND RECEIVED PRN ROBAXIN FOR BACK SPASMS/PAIN, ADVIL FOR TOOTHACHE AND MELATONIN TO ASSIST WITH SLEEP. HE HAD EVENING SNACK AND THEN WENT TO BED. HE HAS APPEARED TO SLEEP THROUGHOUT THE NIGHT. Q15 MINUTE CHECKS TO CONTINUE PER UNIT PROTOCOL AND FOR SAFETY.
[2024-05-29 08:07] VITALS: BP 114/85
--- NOTE | 2024-05-29 14:05 | NUR ---
PT IS INTERMITANTLY WALKING IN THE HALLWAY...SOMETIMES APEARS TO BE RESPONDING TO INTERNAL STIMULI. HE DENEID SI, HI AND AVH. HE REPORTED "A LITTLE ANXIETY ABOUT DISCHARGE." HE REPORTED, "I WOKE UP A LITTLE CABRERA THIS MORNING BUT I'M FEELING BETTER NOW. I'M GONNA LISTEN TO MUSIC AND STAY POSITIVE.
--- NOTE | 2024-05-29 18:32 | NUR ---
PT WAS IN THE SHOWER HAVING A VERY LOUD CONVERSATION. HE IS NOW WALKING THE HOU RESPONDING TO INTERNAL STIMULI THO NOT IN A LOUD VOICE. HE HAS FOR THE MOST PART BEEN POLITE IN MAKING HIS NEEDS KNOWN TODAY.
[2024-05-29 20:21] VITALS: BP 133/80
--- NOTE | 2024-05-30 04:39 | NUR ---
SHIFT SUMMARY PATIENT PACING HALLS, APPEARS TO BE RESPONDING TO INTERNAL STIMULI, AT TIMES RETURNING TO HIS ROOM, OR GOING INTO SENSORY ROOM AND YELLING TO SELF. PATIENT DENIES BOTH AVH. DENIES SI, OR HI. ANSWERING QUESTIONS WITH SHORT CONCISE ANSWERS. DURING SAFETY ROUNDS FOUND TWO HEADPHONES IN ROOM ONE WAS BROKEN. PATIENT VERBALIZED HE DIDN'T KNOW ABOUT THE BROKEN HEADPHONES. BOTH HEADPHONES REMOVED. PATIENT COOPERATIVE WITH ROOM SEARCH. PATIENT COOPERATIVE WITH MEDICATIONS. APPEARS TO BE SLEEPING WELL T/O THE NIGHT RESP EVEN AND UNLABORED. CONTINUE TO MONITOR Q15MIN
[2024-05-30 07:31] LABS: Valproic Acid 47.2 ug/mL (50.0-100.0)
[2024-05-30 08:09] VITALS: BP 125/84
[2024-05-30] MEDS ORDERED: GLIMEPIRIDE4 MG ×2 (14:06)
--- NOTE | 2024-05-30 17:47 | NUR ---
SHIFT SUMMARY: PT ALERT, ORIENTED AND COOPERATIVE WITH CARE. DENIES SI, HI AND AVH. PT APPEARS TO RESPONING TO INTERNAL STIMULI OFF AND ON THROUGH OUT THE DAY. MEDICATED FOR C/O BACK PAIN AND DENTAL PAIN PER EMAR. PT WAS PRESENT ON THE UNIT, PACING IN THE HOU AND SPENT TIME WATHCING TV IN THE DAY ROOM.
[2024-05-30] MEDS ORDERED: Divalproex Sodium 250 MG TABLET.DR PO SCH (21:00)
[2024-05-30 22:09] VITALS: BP 141/94
--- NOTE | 2024-05-31 06:05 | NUR ---
SHIFT SUMMARY Pt is A&O, calm, cooperative, polite, eye contact is appropriate. Pt states his mood is "good," affect is constricted. Pt denies SI, HI, and hallucinations, but admits to "talking to myself," and further stated that these are not hallucinations. He has not been observed obviously responding to internal stimuli this evening, but was noted laughing in his room at one time. Pt denies current pain, but did c/o muscle spasms in his back. Pt stayed in his room during the early evening, but did come out to the TV room after snacktime and watched TV with peers. Pt received PRN melatoning and methocarbamal. Staff continues to monitor q15m for safety and wellness.
[2024-05-31 07:25] VITALS: BP 114/84
--- NOTE | 2024-05-31 08:45 | NUR ---
HOSPITAL DISCHARGE APPOINTMENT Patient is scheduled to meet with Melissa Wilkerson DO on 06/10/24 at 1400 for hospital discharge appointment at [address] [place], [place] [address] // [phone] SANJAY entered appointment information into patient's discharge packet
[2024-05-31] MEDS ORDERED: [UNRECOGNIZED DRUG - CODE] PO ×2 (09:21)
[2024-05-31] MEDS ORDERED: METF500C PO (09:22)
[2024-05-31] MEDS ORDERED: DIVA250ER PO ×2 (09:25)
[2024-05-31] MEDS ORDERED: HALO2 PO (09:26)
[2024-05-31] MEDS ORDERED: Naltrexone HCl50 MG PO (09:26)
--- NOTE | 2024-05-31 10:24 | NUR ---
HOSPITAL FOLLOW-UP APPOINTMENT INFORMATION Patient is scheduled to meet with Corby Acosta MD for hospital follow up appointment on 06/03/24 at 1430 // [facility] [address] [place], [place] [address] // [phone] SANJAY entered appointment information into patient's discharge packet
--- NOTE | 2024-05-31 11:59 | NUR ---
UPDATE [facility] CALLED THIS RN TO NOTIFY THAT DIVALPROEX WAS ONLY AVAILABLE IN 500MG EC, AND THAT 750MG EC WAS NOT AVAILABLE. DR DENNIS CALLED W/ ORDER TO BE CHANGED TO 500MG EC IN THE MORNINGS AND 1000MG EC AT BEDTIME. PHARMACY NOTIFIED.
--- NOTE | 2024-05-31 14:00 | NUR ---
NURSING DISCHARGE NOTE PT AA&OX4. PLEASANT AND COOPERATIVE WITH CARE. SPEECH AND EYE CONTACT APPROPRIATE. DENIES SI, AVH. HE REPORTS THAT HE TALKS TO HIMSELF. MOOD IS EUTHYMIC AFFECT IS CONGRUENT. PT EDUCATED ON DISCHARGE MEDICATIONS, PATIENT PORTAL, SMOKING CEASATION, AND FOLLOW UP APPT. PT VERBALIZED UNDERSTANDING AND DENIED QUESTIONS OR CONCERNS. PT DISCHARGED TO [facility] @[id number]
== END 2024-05-31 11:19 | disposition home or self-care (01) | DRG 885 ==
LOC: BHU 10:26
PROVIDERS: Psychiatry & Neurology Psychiatry; ADMIT Student in an Organized Health Care Education/Training Program
DX: F31.63 Bipolar disorder, current episode mixed, severe, without psychotic features (principal); R45.851 Suicidal ideations; Z59.00 Homelessness unspecified; R44.0 Auditory hallucinations; F12.10 Cannabis abuse, uncomplicated; Z88.8 Allergy status to other drugs, medicaments and biological substances; Z88.5 Allergy status to narcotic agent; Z79.899 Other long term (current) drug therapy; Z79.84 Long term (current) use of oral hypoglycemic drugs
CPT/HCPCS: 36415; 80061; 80164; 80178; 82947; 83036; 86592; A9270; J1200; J1630; J2060

== ENCOUNTER 2024-06-26 00:51 | Emergency (ER) | payer OTHER ==
[~2024-06-26] VITALS: Ht 177.8 cm; Wt 88.5 kg
[~2024-06-26 00:51] MED LIST changes: +DIVA250ER PO; +GLIMEPIRIDE4 MG; +[UNRECOGNIZED DRUG - CODE] PO
[2024-06-26 01:11] VITALS: BP 135/91
== END 2024-06-26 05:20 | disposition home or self-care (01) ==
LOC: ER 00:51
DX: F32.A Depression, unspecified (principal); Z59.00 Homelessness unspecified; Z59.89 Other problems related to housing and economic circumstances; F17.210 Nicotine dependence, cigarettes, uncomplicated; E11.9 Type 2 diabetes mellitus without complications; Z79.84 Long term (current) use of oral hypoglycemic drugs; Z79.83 Long term (current) use of bisphosphonates; Z79.899 Other long term (current) drug therapy; Z79.891 Long term (current) use of opiate analgesic; Z88.5 Allergy status to narcotic agent; Z91.09 Other allergy status, other than to drugs and biological substances; Z91.048 Other nonmedicinal substance allergy status
CPT/HCPCS: 99283

== ENCOUNTER 2024-06-27 02:51 | Emergency (ER) | payer OTHER ==
[~2024-06-27] VITALS: Ht 172.7 cm; Wt 102.1 kg
[2024-06-27 02:54] VITALS: BP 129/86
[2024-06-27] MEDS ORDERED: Diphth,Pertuss(Acell),Tet Vac 0.5 ML VIAL IM ONE (03:40)
== END 2024-06-27 03:46 | disposition other institution (70) ==
LOC: ER 02:51
DX: F12.90 Cannabis use, unspecified, uncomplicated (principal); Z88.5 Allergy status to narcotic agent; Z79.899 Other long term (current) drug therapy; Z79.84 Long term (current) use of oral hypoglycemic drugs; E11.9 Type 2 diabetes mellitus without complications; F17.210 Nicotine dependence, cigarettes, uncomplicated
CPT/HCPCS: 90471; 90715; 99282-25

== ENCOUNTER 2024-06-28 04:27 | Emergency (ER) | payer OTHER ==
[~2024-06-28] VITALS: Ht 177.8 cm; Wt 86.2 kg
[2024-06-28 04:59] VITALS: BP 131/80
[2024-06-28 05:46] LABS: BASOPHILS ABSOLUTE AUTO 0.06 K/mm3 (0.00-0.23); BASOPHILS PERCENT AUTO 1 % (0-2); EOSINOPHILS ABSOLUTE AUTO 0.26 K/mm3 (0.00-0.68); EOSINOPHILS PERCENT AUTO 3 % (0-6); Hematocrit 43.3 % (37.0-53.0); Hemoglobin 14.7 g/dL (13.5-17.5); IMMATURE GRAN ABSOLUTE AUTO 0.13 K/mm3 (0.00-0.10); IMMATURE GRAN PERCENT AUTO 1 % (0-1); LYMPHOCYTES ABSOLUTE AUTO 2.25 K/mm3 (0.84-5.20); LYMPHOCYTES PERCENT AUTO 21 % (21-46); MONOCYTES ABSOLUTE AUTO 0.88 K/mm3 (0.16-1.47); MONOCYTES PERCENT AUTO 8 % (4-13); Mean Corpuscular HGB 31.7 pg (26.0-34.0); Mean Corpuscular HGB Conc 33.9 g/dL (31.5-36.5); Mean Corpuscular Volume 93 fL (80-100); Mean Platelet Volume 10.2 fL (9.1-12.4); NEUTROPHILS ABSOLUTE AUTO 6.94 K/mm3 (1.96-9.15); NEUTROPHILS PERCENT AUTO 66 % (41-73); Platelet Count 161 K/mm3 (150-400); RDW Coefficient Variation 12.7 % (11.7-14.2); RDW Standard Deviation 43.8 fL (35.1-46.3); Red Blood Cell Count 4.64 M/mm3 (4.30-5.90); White Blood Cell Count 10.52 K/mm3 (4.00-11.30)
[2024-06-28 06:08] LABS: Acetaminophen, Random <2.0 ug/mL (10.0-30.0); Alanine Aminotransfer (ALT/SGP 17 U/L (12-78); Albumin/Globulin Ratio 0.8 (0.8-1.8); Alk Phos 82 U/L (50-136); Anion Gap 11 mmol/L (3-11); Aspartate Aminotrans (AST/SGOT 14 U/L (12-37); Bilirubin, Total 0.2 mg/dL (0.1-1.0); Blood Urea Nitrogen 10 mg/dL (8-24); Bun/Creatinine Ratio 17.6 (12.0-20.0); CO2, Blood 25 mmol/L (21-32); Calcium, Blood 8.5 mg/dL (8.5-10.1); Chloride, Blood 102 mmol/L (98-108); Creatinine, Blood 0.57 mg/dL (0.60-1.20); Ethanol (Alcohol), Blood, Med 36 mg/dL; Globulin, Blood 3.6 g/dL (2.2-4.0); Glomerular Filtration Rate 121 (60-); Glucose, Blood 364 mg/dL (70-99); Potassium, Blood 4.1 mmol/L (3.5-5.5); Salicylate 2.3 mg/dL (2.8-20.0); Sodium, Blood 134 mmol/L (136-145); Total Protein, Blood 6.6 g/dL (6.4-8.2)
== END 2024-06-28 06:52 | disposition home or self-care (01) ==
LOC: ER 04:27
PROVIDERS: Emergency Medicine
DX: Z00.00 Encounter for general adult medical examination without abnormal findings (principal); F17.210 Nicotine dependence, cigarettes, uncomplicated; E11.9 Type 2 diabetes mellitus without complications; Z88.5 Allergy status to narcotic agent; Z88.9 Allergy status to unspecified drugs, medicaments and biological substances; Z88.3 Allergy status to other anti-infective agents; Z79.84 Long term (current) use of oral hypoglycemic drugs; Z79.899 Other long term (current) drug therapy
CPT/HCPCS: 80053; 80320; 85025; 93005; 93010; 99283-25; G0480

== ENCOUNTER 2024-07-05 03:38 | Emergency (ER) | payer OTHER ==
[~2024-07-05] VITALS: Ht 177.8 cm; Wt 92.1 kg
[2024-07-05 04:37] VITALS: BP 143/92
== END 2024-07-05 05:25 | disposition left against medical advice (07) ==
LOC: ER 03:38
DX: Z53.21 Procedure and treatment not carried out due to patient leaving prior to being seen by health care provider (principal)

== ENCOUNTER 2024-07-07 20:58 | Emergency (ER) | payer OTHER ==
[~2024-07-07] VITALS: Ht 177.8 cm; Wt 89.8 kg
[2024-07-07 21:04] VITALS: BP 124/90
[2024-07-07 23:06] LABS: BASOPHILS ABSOLUTE AUTO 0.09 K/mm3 (0.00-0.23); BASOPHILS PERCENT AUTO 1 % (0-2); EOSINOPHILS ABSOLUTE AUTO 0.71 K/mm3 (0.00-0.68); EOSINOPHILS PERCENT AUTO 6 % (0-6); Hemoglobin 14.6 g/dL (13.5-17.5); IMMATURE GRAN PERCENT AUTO 1 % (0-1); LYMPHOCYTES PERCENT AUTO 34 % (21-46); MONOCYTES ABSOLUTE AUTO 1.05 K/mm3 (0.16-1.47); MONOCYTES PERCENT AUTO 9 % (4-13); Mean Corpuscular HGB 31.3 pg (26.0-34.0); Mean Corpuscular Volume 92 fL (80-100); NEUTROPHILS ABSOLUTE AUTO 6.05 K/mm3 (1.96-9.15); NEUTROPHILS PERCENT AUTO 50 % (41-73); Platelet Count 192 K/mm3 (150-400); RDW Coefficient Variation 12.6 % (11.7-14.2); RDW Standard Deviation 42.9 fL (35.1-46.3); Red Blood Cell Count 4.67 M/mm3 (4.30-5.90)
[2024-07-07 23:22] LABS: Source, Urine Clean Catch
[2024-07-07 23:24] LABS: Bilirubin, Urine Neg (Neg); Blood, Urine Neg (Neg); Glucose Qualitative, Urine 1+ (Neg); Ketones, Urine Neg (Neg); Leukocyte Esterase, Urine Neg (Neg); Nitrite, Urine Neg (Neg); Protein, Urine Neg (Neg); Specific Gravity, Urine 1.015 (1.003-1.022); Urobilinogen, Urine NORM (Normal)
[2024-07-07 23:25] LABS: Appearance, Urine Clear (Clear); Color, Urine Yellow (P-Yellow)
[2024-07-07 23:29] LABS: Ethanol (Alcohol), Blood, Med <3 mg/dL; Salicylate 2.8 mg/dL (2.8-20.0)
[2024-07-07 23:31] LABS: Alanine Aminotransfer (ALT/SGP 13 U/L (12-78); Albumin, Blood 3.3 g/dL (3.4-5.0); Alk Phos 84 U/L (50-136); Anion Gap 10 mmol/L (3-11); Aspartate Aminotrans (AST/SGOT 16 U/L (12-37); Bilirubin, Total 0.3 mg/dL (0.1-1.0); Blood Urea Nitrogen 8 mg/dL (8-24); CO2, Blood 23 mmol/L (21-32); Calcium, Blood 8.6 mg/dL (8.5-10.1); Chloride, Blood 104 mmol/L (98-108); Creatinine, Blood 0.53 mg/dL (0.60-1.20); Globulin, Blood 3.4 g/dL (2.2-4.0); Glomerular Filtration Rate 124 (60-); Glucose, Blood 164 mg/dL (70-99); Sodium, Blood 133 mmol/L (136-145); Total Protein, Blood 6.7 g/dL (6.4-8.2)
[2024-07-07 23:33] LABS: Acetaminophen, Random <2.0 ug/mL (10.0-30.0)
[2024-07-07 23:42] LABS: U Amphetamine Screen Not Detected; U Barbituate Screen Not Detected; U Benzodiazapine Screen Not Detected; U Buprenorphine Screen Not Detected; U Cannabinoids Screen Not Detected; U Cocaine Screen Not Detected; U Methadone Screen Not Detected; U Methamphetamine Screen Not Detected; U Opiates Screen Not Detected; U Oxycodone Screen Not Detected; U Phencyclidine Screen Not Detected
== END 2024-07-08 00:05 | disposition home or self-care (01) ==
LOC: ER 20:58
PROVIDERS: Student in an Organized Health Care Education/Training Program
DX: F41.9 Anxiety disorder, unspecified (principal); R45.1 Restlessness and agitation; Z88.5 Allergy status to narcotic agent; Z79.84 Long term (current) use of oral hypoglycemic drugs; Z79.899 Other long term (current) drug therapy; E11.9 Type 2 diabetes mellitus without complications; F17.210 Nicotine dependence, cigarettes, uncomplicated
CPT/HCPCS: 80053; 80320; 81003; 85025; 93005; 93010; 99285-25; G0480

== ENCOUNTER 2024-07-09 23:01 | Emergency (ER) | payer OTHER ==
[~2024-07-09] VITALS: Ht 177.8 cm; Wt 86.2 kg
[2024-07-09 23:14] VITALS: BP 140/3
== END 2024-07-09 23:39 | disposition home or self-care (01) ==
LOC: ER 23:01
DX: R45.851 Suicidal ideations (principal); F32.A Depression, unspecified; Z59.00 Homelessness unspecified; T73.0XXA Starvation, initial encounter; E11.9 Type 2 diabetes mellitus without complications; F17.210 Nicotine dependence, cigarettes, uncomplicated; Z59.89 Other problems related to housing and economic circumstances; Z88.8 Allergy status to other drugs, medicaments and biological substances
CPT/HCPCS: 99282

== ENCOUNTER 2024-07-10 02:09 | Emergency (ER) | payer OTHER ==
[~2024-07-10] VITALS: Ht 177.8 cm; Wt 86.2 kg
[2024-07-10 02:27] VITALS: BP 154/91
== END 2024-07-10 02:39 | disposition left against medical advice (07) ==
LOC: ER 02:09
DX: Z01.89 Encounter for other specified special examinations (principal); E11.9 Type 2 diabetes mellitus without complications; F17.210 Nicotine dependence, cigarettes, uncomplicated; Z79.84 Long term (current) use of oral hypoglycemic drugs; Z79.899 Other long term (current) drug therapy; Z88.5 Allergy status to narcotic agent; Z88.8 Allergy status to other drugs, medicaments and biological substances
CPT/HCPCS: 99281

== ENCOUNTER 2024-07-10 21:55 | Emergency (ER) | payer OTHER ==
[~2024-07-10] VITALS: Ht 177.8 cm; Wt 86.2 kg
[2024-07-10 22:19] VITALS: BP 141/88
[2024-07-12] MEDS ORDERED: [UNRECOGNIZED DRUG - CODE] PO (01:32)
== END 2024-07-11 00:27 | disposition left against medical advice (07) ==
LOC: ER 21:55
DX: F32.9 Major depressive disorder, single episode, unspecified (principal); F10.90 Alcohol use, unspecified, uncomplicated; E11.9 Type 2 diabetes mellitus without complications; F17.210 Nicotine dependence, cigarettes, uncomplicated; Z59.00 Homelessness unspecified; Z79.84 Long term (current) use of oral hypoglycemic drugs; Z79.899 Other long term (current) drug therapy; Z88.5 Allergy status to narcotic agent; Z88.8 Allergy status to other drugs, medicaments and biological substances
CPT/HCPCS: 99281

== ENCOUNTER 2024-07-11 22:14 | Observation (INO) | payer OTHER ==
[~2024-07-11] VITALS: Ht 172.7 cm; Wt 86.2 kg
[2024-07-11 23:09] VITALS: BP 148/100
[2024-07-12 00:37] LABS: Bilirubin, Urine Neg (Neg); Blood, Urine Neg (Neg); Glucose Qualitative, Urine 4+ (Neg); Ketones, Urine Neg (Neg); Leukocyte Esterase, Urine Neg (Neg); Nitrite, Urine Neg (Neg); Protein, Urine Neg (Neg); Source, Urine Clean Catch; Urobilinogen, Urine NORM (Normal); pH, Urine 6.5 (5.0-8.0)
[2024-07-12 00:38] LABS: BASOPHILS ABSOLUTE AUTO 0.06 K/mm3 (0.00-0.23); BASOPHILS PERCENT AUTO 1 % (0-2); EOSINOPHILS PERCENT AUTO 7 % (0-6); Hematocrit 44.1 % (37.0-53.0); Hemoglobin 14.9 g/dL (13.5-17.5); IMMATURE GRAN ABSOLUTE AUTO 0.08 K/mm3 (0.00-0.10); IMMATURE GRAN PERCENT AUTO 1 % (0-1); LYMPHOCYTES ABSOLUTE AUTO 3.23 K/mm3 (0.84-5.20); LYMPHOCYTES PERCENT AUTO 31 % (21-46); MONOCYTES ABSOLUTE AUTO 0.81 K/mm3 (0.16-1.47); MONOCYTES PERCENT AUTO 8 % (4-13); Mean Corpuscular HGB 31.8 pg (26.0-34.0); Mean Corpuscular HGB Conc 33.8 g/dL (31.5-36.5); Mean Corpuscular Volume 94 fL (80-100); Mean Platelet Volume 9.8 fL (9.1-12.4); NEUTROPHILS ABSOLUTE AUTO 5.52 K/mm3 (1.96-9.15); NEUTROPHILS PERCENT AUTO 53 % (41-73); Platelet Count 175 K/mm3 (150-400); RDW Coefficient Variation 12.6 % (11.7-14.2); RDW Standard Deviation 43.3 fL (35.1-46.3); Red Blood Cell Count 4.69 M/mm3 (4.30-5.90)
[2024-07-12 00:41] LABS: Appearance, Urine Clear (Clear); Color, Urine Pale Yellow (P-Yellow)
[2024-07-12 00:56] LABS: Ethanol (Alcohol), Blood, Med <3 mg/dL; Salicylate 3.3 mg/dL (2.8-20.0)
[2024-07-12 00:57] LABS: Alanine Aminotransfer (ALT/SGP 10 U/L (12-78); Albumin, Blood 3.2 g/dL (3.4-5.0); Albumin/Globulin Ratio 0.9 (0.8-1.8); Alk Phos 80 U/L (50-136); Anion Gap 11 mmol/L (3-11); Aspartate Aminotrans (AST/SGOT 9 U/L (12-37); Bilirubin, Total 0.2 mg/dL (0.1-1.0); Blood Urea Nitrogen 8 mg/dL (8-24); Bun/Creatinine Ratio 12.7 (12.0-20.0); CO2, Blood 25 mmol/L (21-32); Calcium, Blood 8.9 mg/dL (8.5-10.1); Chloride, Blood 103 mmol/L (98-108); Creatinine, Blood 0.63 mg/dL (0.60-1.20); Globulin, Blood 3.6 g/dL (2.2-4.0); Glomerular Filtration Rate 117 (60-); Glucose, Blood 267 mg/dL (70-99); Sodium, Blood 135 mmol/L (136-145); Total Protein, Blood 6.8 g/dL (6.4-8.2)
[2024-07-12 01:00] LABS: Acetaminophen, Random <2.0 ug/mL (10.0-30.0)
[2024-07-12 01:10] LABS: U Amphetamine Screen Not Detected; U Barbituate Screen Not Detected; U Benzodiazapine Screen Not Detected; U Buprenorphine Screen Not Detected; U Cannabinoids Screen Not Detected; U Cocaine Screen Not Detected; U Methadone Screen Not Detected; U Methamphetamine Screen Not Detected; U Opiates Screen Not Detected; U Oxycodone Screen Not Detected; U Phencyclidine Screen Not Detected
[2024-07-12] MEDS ORDERED: [UNRECOGNIZED DRUG - CODE] PO (01:32)
== END 2024-07-12 13:39 | disposition other institution (70) ==
LOC: ER 22:14 → EOR 22:15
PROVIDERS: Student in an Organized Health Care Education/Training Program; ADMIT Emergency Medicine
DX: F31.63 Bipolar disorder, current episode mixed, severe, without psychotic features (principal); F43.25 Adjustment disorder with mixed disturbance of emotions and conduct; R45.851 Suicidal ideations; F20.9 Schizophrenia, unspecified; F17.210 Nicotine dependence, cigarettes, uncomplicated; E11.65 Type 2 diabetes mellitus with hyperglycemia; Z59.00 Homelessness unspecified; Z79.84 Long term (current) use of oral hypoglycemic drugs; Z79.899 Other long term (current) drug therapy; Z88.8 Allergy status to other drugs, medicaments and biological substances
CPT/HCPCS: 80053; 80320; 81003; 85025; 99285; G0378; G0480

== ENCOUNTER 2024-07-14 23:27 | Emergency (ER) | payer OTHER ==
[~2024-07-14] VITALS: Ht 177.8 cm; Wt 86.2 kg
[~2024-07-14 23:27] MED LIST changes: +[UNRECOGNIZED DRUG - CODE] PO
[2024-07-14 23:50] VITALS: BP 139/89
== END 2024-07-15 00:55 | disposition home or self-care (01) ==
LOC: ER 23:27
DX: R45.851 Suicidal ideations (principal); Z00.8 Encounter for other general examination; Z88.8 Allergy status to other drugs, medicaments and biological substances; Z79.899 Other long term (current) drug therapy; E11.9 Type 2 diabetes mellitus without complications; F17.210 Nicotine dependence, cigarettes, uncomplicated
CPT/HCPCS: 93005; 93010; 99284

== ENCOUNTER 2024-07-15 17:55 | Emergency (ER) | payer OTHER ==
[~2024-07-15] VITALS: Ht 177.8 cm; Wt 108.9 kg
[2024-07-15 18:38] LABS: BASOPHILS ABSOLUTE AUTO 0.06 K/mm3 (0.00-0.23); BASOPHILS PERCENT AUTO 1 % (0-2); EOSINOPHILS ABSOLUTE AUTO 0.74 K/mm3 (0.00-0.68); EOSINOPHILS PERCENT AUTO 8 % (0-6); Hematocrit 40.4 % (37.0-53.0); Hemoglobin 13.7 g/dL (13.5-17.5); IMMATURE GRAN ABSOLUTE AUTO 0.05 K/mm3 (0.00-0.10); IMMATURE GRAN PERCENT AUTO 1 % (0-1); LYMPHOCYTES ABSOLUTE AUTO 3.06 K/mm3 (0.84-5.20); LYMPHOCYTES PERCENT AUTO 31 % (21-46); MONOCYTES ABSOLUTE AUTO 0.73 K/mm3 (0.16-1.47); MONOCYTES PERCENT AUTO 7 % (4-13); Mean Corpuscular HGB 31.7 pg (26.0-34.0); Mean Corpuscular HGB Conc 33.9 g/dL (31.5-36.5); Mean Corpuscular Volume 94 fL (80-100); Mean Platelet Volume 9.7 fL (9.1-12.4); NEUTROPHILS ABSOLUTE AUTO 5.19 K/mm3 (1.96-9.15); NEUTROPHILS PERCENT AUTO 53 % (41-73); Platelet Count 178 K/mm3 (150-400); RDW Coefficient Variation 12.5 % (11.7-14.2); RDW Standard Deviation 43.3 fL (35.1-46.3); Red Blood Cell Count 4.32 M/mm3 (4.30-5.90); White Blood Cell Count 9.83 K/mm3 (4.00-11.30)
[2024-07-15 18:59] LABS: Albumin/Globulin Ratio 0.9 (0.8-1.8); Bilirubin, Total 0.4 mg/dL (0.1-1.0); Bun/Creatinine Ratio 14.3 (12.0-20.0); Calcium, Blood 8.3 mg/dL (8.5-10.1); Creatinine, Blood 0.56 mg/dL (0.60-1.20); Globulin, Blood 3.4 g/dL (2.2-4.0); Potassium, Blood 3.7 mmol/L (3.5-5.5); Total Protein, Blood 6.4 g/dL (6.4-8.2)
[2024-07-15 22:15] VITALS: BP 112/78
[2024-07-15] MEDS ORDERED: NS 1,000 ML IV SCH (22:15)
== END 2024-07-15 22:26 | disposition home or self-care (01) ==
LOC: ER 17:55
PROVIDERS: Emergency Medicine
DX: F10.129 Alcohol abuse with intoxication, unspecified (principal); E11.9 Type 2 diabetes mellitus without complications; F20.9 Schizophrenia, unspecified; F17.210 Nicotine dependence, cigarettes, uncomplicated; Z88.8 Allergy status to other drugs, medicaments and biological substances; Z88.5 Allergy status to narcotic agent; Z79.899 Other long term (current) drug therapy; Z79.84 Long term (current) use of oral hypoglycemic drugs
CPT/HCPCS: 80053; 80320; 85025; 99285-25

== ENCOUNTER 2024-07-20 22:34 | Emergency (ER) | payer OTHER ==
[~2024-07-20] VITALS: Ht 177.8 cm; Wt 86.2 kg
[2024-07-20] MEDS ORDERED: HyDROXyzine HCl 25 MG Tab PO ONE (23:10)
[2024-07-20 23:36] VITALS: BP 122/83
== END 2024-07-20 23:43 | disposition home or self-care (01) ==
LOC: ER 22:34
DX: R45.851 Suicidal ideations (principal); F17.210 Nicotine dependence, cigarettes, uncomplicated; E11.9 Type 2 diabetes mellitus without complications; Z86.59 Personal history of other mental and behavioral disorders; Z59.00 Homelessness unspecified; Z79.84 Long term (current) use of oral hypoglycemic drugs; Z79.899 Other long term (current) drug therapy; Z88.5 Allergy status to narcotic agent; Z88.8 Allergy status to other drugs, medicaments and biological substances
CPT/HCPCS: 99284; A9270

== ENCOUNTER 2024-07-23 00:04 | Emergency (ER) | payer OTHER ==
[~2024-07-23] VITALS: Ht 177.8 cm; Wt 86.2 kg
[2024-07-23 00:16] VITALS: BP 143/78
[2024-07-23] MEDS ORDERED: HyDROXyzine HCl 25 MG Tab PO ONE (01:00)
== END 2024-07-23 01:15 | disposition home or self-care (01) ==
LOC: ER 00:04
DX: F41.9 Anxiety disorder, unspecified (principal); E11.9 Type 2 diabetes mellitus without complications; F17.210 Nicotine dependence, cigarettes, uncomplicated; Z91.51 Personal history of suicidal behavior; Z79.899 Other long term (current) drug therapy; Z79.84 Long term (current) use of oral hypoglycemic drugs; Z88.5 Allergy status to narcotic agent; Z88.8 Allergy status to other drugs, medicaments and biological substances
CPT/HCPCS: 99282; A9270

== ENCOUNTER 2024-07-25 00:01 | Emergency (ER) | payer OTHER ==
[~2024-07-25] VITALS: Ht 172.7 cm; Wt 83.9 kg
[2024-07-25 00:11] VITALS: BP 136/93
[2024-07-25] MEDS ORDERED: HyDROXyzine HCl 25 MG Tab PO ONE ×2 (00:15→00:20)
== END 2024-07-25 00:23 | disposition home or self-care (01) ==
LOC: ER 00:01
DX: R45.851 Suicidal ideations (principal); E11.9 Type 2 diabetes mellitus without complications; F17.210 Nicotine dependence, cigarettes, uncomplicated; Z79.84 Long term (current) use of oral hypoglycemic drugs; Z79.899 Other long term (current) drug therapy; Z88.5 Allergy status to narcotic agent; Z88.8 Allergy status to other drugs, medicaments and biological substances
CPT/HCPCS: 99284; A9270

== ENCOUNTER → 2024-12-23 | Outpatient (CLI) | payer OTHER ==
[2024-12-23 20:31] LABS: BASOPHILS ABSOLUTE AUTO 0.04 K/mm3 (0.00-0.23); BASOPHILS PERCENT AUTO 1 % (0-2); EOSINOPHILS ABSOLUTE AUTO 0.30 K/mm3 (0.00-0.68); EOSINOPHILS PERCENT AUTO 4 % (0-6); Hematocrit 48.5 % (37.0-53.0); Hemoglobin 15.8 g/dL (13.5-17.5); IMMATURE GRAN ABSOLUTE AUTO 0.02 K/mm3 (0.00-0.10); IMMATURE GRAN PERCENT AUTO 0 % (0-1); LYMPHOCYTES ABSOLUTE AUTO 2.24 K/mm3 (0.84-5.20); LYMPHOCYTES PERCENT AUTO 32 % (21-46); MONOCYTES ABSOLUTE AUTO 0.66 K/mm3 (0.16-1.47); MONOCYTES PERCENT AUTO 9 % (4-13); Mean Corpuscular HGB Conc 32.6 g/dL (31.5-36.5); Mean Corpuscular Volume 96 fL (80-100); NEUTROPHILS ABSOLUTE AUTO 3.83 K/mm3 (1.96-9.15); NEUTROPHILS PERCENT AUTO 54 % (41-73); NRBC ABSOLUTE 0.00 K/mm3 (0.00-0.02); NRBC Auto 0.0 /100 WBC (0.0-0.2); Platelet Count 216 K/mm3 (150-400); RDW Coefficient Variation 12.2 % (11.7-14.2); RDW Standard Deviation 43.4 fL (35.1-46.3)
[2024-12-23 20:54] LABS: Alanine Aminotransfer (ALT/SGP 21 U/L (12-78); Albumin, Blood 3.7 g/dL (3.4-5.0); Albumin/Globulin Ratio 1.0 (0.8-1.8); Anion Gap 9 mmol/L (3-11); Aspartate Aminotrans (AST/SGOT 15 U/L (12-37); Bilirubin, Total 0.4 mg/dL (0.1-1.0); Blood Urea Nitrogen 9 mg/dL (8-24); CHOL/HDL RATIO 5.1; CO2, Blood 27 mmol/L (21-32); Calcium, Blood 9.6 mg/dL (8.5-10.1); Chloride, Blood 102 mmol/L (98-108); Cholesterol 184 mg/dL (50-200); Creatinine, Blood 0.70 mg/dL (0.60-1.20); Globulin, Blood 3.8 g/dL (2.2-4.0); Glucose, Blood 236 mg/dL (70-99); HDL Cholesterol 36 mg/dL (>39); LDL/HDL RATIO 3.2; Low Density Lipoprotein Chol 116 mg/dL (0-110); Potassium, Blood 4.1 mmol/L (3.5-5.5); Sodium, Blood 134 mmol/L (136-145); Total Protein, Blood 7.5 g/dL (6.4-8.2); Triglycerides 159 mg/dL (30-160); Very Low Density Lipoprot Chol 31 mg/dL (6-32)
== END ==
LOC: LAB SHORT 20:20 → LAB 20:20
PROVIDERS: Student in an Organized Health Care Education/Training Program
DX: Z13.6 Encounter for screening for cardiovascular disorders (principal); E11.9 Type 2 diabetes mellitus without complications; M54.50 Low back pain, unspecified; F20.9 Schizophrenia, unspecified
CPT/HCPCS: 80053; 80061; 83036; 85025